=== PATIENT | male | born 1950 | race Caucasian/White ===

== ENCOUNTER 2018-06-06 08:06 | Inpatient (IN) | payer MEDICARE, MEDICAID ==
[2018-06-06 08:51] LABS: ADD MAN DIFF? NO
[2018-06-06 08:54] LABS: WHITE BLOOD COUNT 7.9 10^3/ul (4.8-10.8)
[2018-06-06 08:54] LABS: BASOPHILS % 0.3 % (0.0-2.0); EOSINOPHILS # 0.1 10^3/ul (0.0-0.5); EOSINOPHILS % 0.9 % (0.0-7.0); HEMATOCRIT 40.4 % (42.0-52.0); HEMOGLOBIN 13.7 g/dl (14.0-18.0); LYMPHOCYTES # 1.7 10^3/ul (0.8-2.9); LYMPHOCYTES % 20.9 % (15.0-51.0); MEAN CORPUSCULAR HEMOGLOBIN 31.9 pg (29.0-33.0); MEAN CORPUSCULAR HGB CONC 33.9 g/dl (32.0-37.0); MEAN CORPUSCULAR VOLUME 94.2 fl (82.0-101.0); MEAN PLATELET VOLUME 10.4 fl (7.4-10.4); MONOCYTE # 0.3 10^3/ul (0.3-0.9); MONOCYTES % 4.3 % (0.0-11.0); NEUTROPHIL # 5.8 10^3/ul (1.6-7.5); NEUTROPHILS % 73.2 % (39.0-77.0); PLATELET COUNT 153 10^3/UL (140-415); POSITIVE DIFF @See below; RED BLOOD COUNT 4.29 10^6/ul (4.70-6.10); RED CELL DISTRIBUTION WIDTH 12.8 % (11.5-14.5)
[2018-06-06] MEDS: LORAZEPAM 2 MG INJ IV ×3 (08:58→22:48)
[2018-06-06] MEDS: ACETAMINOPHEN 325 MG TAB PO ×2 (08:58→21:08)
[2018-06-06] MEDS: SODIUM CHLORIDE 0.9% 1L BAG IV* (08:59)
[2018-06-06] MEDS: MULTIVITAMINS 10 ML, THIAMINE 100 MG, FOLIC ACID 1 MG, MAGNESIUM SULFATE 2 GM in SOD CH... IV (09:02)
[2018-06-06 09:08] LABS: LACTIC ACID 1.2 mmol/L (0.5-2.0)
[2018-06-06 09:11] LABS: ALANINE AMINOTRANSFERASE 26 IU/L (13-69); ALBUMIN/GLOBULIN RATIO 1.02; ALKALINE PHOSPHATASE 114 IU/L (42-121); ANION GAP 12 (8-16); ASPARTATE AMINO TRANSFERASE 31 IU/L (15-46); BILIRUBIN,INDIRECT 0.4 mg/dl (0-1.1); BILIRUBIN,TOTAL 0.4 mg/dl (0.2-1.3); BLOOD UREA NITROGEN 28 mg/dl (7-20); CALCIUM 8.8 mg/dl (8.4-10.2); CARBON DIOXIDE 26 mmol/L (21-31); CHLORIDE 104 mmol/L (97-110); CREATININE 2.16 mg/dl (0.61-1.24); GLUCOSE 211 mg/dl (70-220); POTASSIUM 4.5 mmol/L (3.5-5.1); SODIUM 137 mmol/L (135-144); TOTAL PROTEIN 7.9 g/dl (6.1-8.1)
[2018-06-06 09:14] LABS: INR 0.85; PARTIAL THROMBOPLASTIN TIME 29.5 Sec (25.0-35.0); PROTIME 11.7 Sec (11.9-14.9); PT RATIO 0.9
[2018-06-06 09:22] LABS: TROPONIN-I 0.034 ng/ml (0.000-0.120)
[2018-06-06 09:31] LABS: ETHANOL < 10.0 mg/dl
[2018-06-06] MEDS: ASPIRIN 81 MG TAB PO (10:15)
[2018-06-06] MEDS ORDERED: ONDANSETRON 4 MG INJ IV (10:30)
[2018-06-06] MEDS ORDERED: ACETAMINOPHEN 325 MG TAB PO (10:30)
[2018-06-06 11:06] LABS: LACTIC ACID 0.9 mmol/L (0.5-2.0)
[2018-06-06 11:24] LABS: ADD UMIC YES; UR ASCORBIC ACID NEGATIVE (NEGATIVE); UR BILIRUBIN (Dip) NEGATIVE (NEGATIVE); UR BLOOD (Dip) 1+ mg/dL (NEGATIVE); UR CLARITY CLEAR (CLEAR); UR COLOR STRAW (YELLOW); UR GLUCOSE (Dip) 2+ mg/dL (NEGATIVE); UR KETONES (Dip) NEGATIVE (NEGATIVE); UR LEUKOCYTE ESTERASE (Dip) NEGATIVE Leu/ul (NEGATIVE); UR NITRITE (Dip) NEGATIVE (NEGATIVE); UR RBC 6 /HPF (0-5); UR SPECIFIC GRAVITY (Dip) 1.009 (1.003-1.030); UR TOTAL PROTEIN (Dip) 3+ mg/dl (NEGATIVE); UR UROBILINOGEN (Dip) NEGATIVE (NEGATIVE); UR WBC 1 /HPF (0-5)
[2018-06-06] MEDS ORDERED: NACL 0.9% 3 ML SYG IV (15:00)
[2018-06-06 15:21] LABS: HEMOGLOBIN A1C 8.4 % (0-5.9)
[2018-06-06] MEDS: hydrALAzine 20 MG INJ IV (15:32)
[2018-06-06 15:35] LABS: FREE T4 (FREE THYROXINE) 0.93 ng/dl (0.78-2.44)
[2018-06-06 15:38] LABS: CHOLESTEROL 195 mg/dl (100-200)
[2018-06-06 15:38] LABS: CHOL/HDL RATIO 3.8 RATIO; HDL CHOLESTEROL 51 mg/dl (30-78); LDL CHOLESTEROL,CALCULATED 81 mg/dl; TRIGLYCERIDES 316 mg/dl (0-149)
[2018-06-06 15:48] LABS: C-REACTIVE PROTEIN < 0.5 mg/dl (0.0-0.9)
[2018-06-06 17:28] LABS: ERYTHROCYTE SEDIMENTATION RATE 84 mm/Hr (0-20)
[2018-06-06] MEDS: INSULIN ASPART [NOVOLOG] 3 ML PEN SC ×3 (17:32→20:17)
[2018-06-06 19:51] LABS: AMPHETAMINE/METHAMPHETAMINE Negative (NEGATIVE); BARBITURATES Negative (NEGATIVE); BENZODIAZEPINES Negative (NEGATIVE); CANNABINOIDS Negative (NEGATIVE); COCAINE Negative (NEGATIVE); OPIATES Negative (NEGATIVE)
[2018-06-06] MEDS ORDERED: DEXTROSE 50% 50 ML SYRINGE IV ×2 (20:00)
[2018-06-06] MEDS ORDERED: GLUCOSE GEL 15 GRAM TUBE BUCCAL (20:00)
[2018-06-06] MEDS ORDERED: GLUCOSE GEL 15 GRAM TUBE PO ×2 (20:00)
[2018-06-06] MEDS ORDERED: GLUCAGON 1 MG INJ IM (20:00)
[2018-06-06] MEDS: CHLORDIAZEPOXIDE 25 MG CAP PO (20:08)
[2018-06-06] MEDS: METOPROLOL 25 MG TAB PO (20:08)
[2018-06-06] MEDS: ATORVASTATIN 40 MG TAB PO (20:08)
[2018-06-06] MEDS: INSULIN GLARGINE [LANTus] (100 UNITS/ML) SYG SC (20:17)
[2018-06-06] MEDS: HEPARIN 5,000 UNIT/0.5 ML VIAL SC (22:00)
[2018-06-07] MEDS: LORAZEPAM 2 MG INJ IV ×6 (01:49→14:40)
[2018-06-07] MEDS: hydrALAzine 20 MG INJ IV ×2 (05:01→16:04)
[2018-06-07] MEDS: HEPARIN 5,000 UNIT/0.5 ML VIAL SC ×3 (05:47→22:38)
[2018-06-07] MEDS ORDERED: PROPOFOL 200 MG INJ (07:00)
[2018-06-07] MEDS ORDERED: SUCCINYLCHOLINE CHLORIDE 100 MG/5 ML SYG IV (07:00)
[2018-06-07] MEDS ORDERED: ETOMIDATE 20 MG INJ (07:00)
[2018-06-07 07:17] LABS: WHITE BLOOD COUNT 12.7 10^3/ul (4.8-10.8)
[2018-06-07 07:17] LABS: HEMATOCRIT 42.8 % (42.0-52.0); HEMOGLOBIN 14.7 g/dl (14.0-18.0); MEAN CORPUSCULAR HEMOGLOBIN 31.8 pg (29.0-33.0); MEAN CORPUSCULAR HGB CONC 34.3 g/dl (32.0-37.0); MEAN CORPUSCULAR VOLUME 92.6 fl (82.0-101.0); PLATELET COUNT 169 10^3/UL (140-415); POSITIVE DIFF @See below; RED BLOOD COUNT 4.62 10^6/ul (4.70-6.10); RED CELL DISTRIBUTION WIDTH 12.7 % (11.5-14.5)
[2018-06-07 07:31] LABS: ADD MAN DIFF? YES
[2018-06-07 07:56] LABS: CREATINE KINASE 136 IU/L (23-200); MAGNESIUM 1.9 mg/dl (1.7-2.5)
[2018-06-07 08:02] LABS: ALANINE AMINOTRANSFERASE 19 IU/L (13-69); ALBUMIN 3.8 g/dl (3.3-4.9); ALBUMIN/GLOBULIN RATIO 0.92; ALKALINE PHOSPHATASE 111 IU/L (42-121); ANION GAP 14 (8-16); ASPARTATE AMINO TRANSFERASE 32 IU/L (15-46); BILIRUBIN,INDIRECT 0.5 mg/dl (0-1.1); BILIRUBIN,TOTAL 0.5 mg/dl (0.2-1.3); BLOOD UREA NITROGEN 23 mg/dl (7-20); CALCIUM 8.7 mg/dl (8.4-10.2); CARBON DIOXIDE 21 mmol/L (21-31); CHLORIDE 104 mmol/L (97-110); CREATININE 1.91 mg/dl (0.61-1.24); GLUCOSE 166 mg/dl (70-220); POTASSIUM 4.1 mmol/L (3.5-5.1); SODIUM 135 mmol/L (135-144); TOTAL PROTEIN 7.9 g/dl (6.1-8.1)
[2018-06-07] MEDS: INSULIN ASPART [NOVOLOG] 3 ML PEN SC ×6 (08:03→22:44)
[2018-06-07 08:08] LABS: CK INDEX 0.3; CK-MB 0.36 ng/ml (0.0-2.4); TROPONIN-I 0.068 ng/ml (0.000-0.120)
[2018-06-07] MEDS: MULTIVITAMINS 10 ML, THIAMINE 100 MG, FOLIC ACID 1 MG in SOD CHLORIDE 0.9% 1,000 ML IVPB (08:58)
[2018-06-07] MEDS: ASPIRIN 81 MG TAB PO (09:00)
[2018-06-07] MEDS: METOPROLOL 25 MG TAB PO ×2 (09:00→22:22)
[2018-06-07] MEDS: CHLORDIAZEPOXIDE 25 MG CAP PO ×3 (09:00→22:22)
[2018-06-07 09:55] LABS: BAND NEUTROPHILS #M 0.5 10^3/ul (0.0-0.6); BAND NEUTROPHILS % (M) 4 % (0-4); EOSINOPHILS % (M) 1 % (0-7); LYMPHOCYTES #M 1.2 10^3/ul (0.8-2.9); LYMPHOCYTES % (M) 10 % (15-51); METAMYELOCYTES #M 0.1 10^3/ul (0.0-0.0); METAMYELOCYTES %M 1 % (0-0); MONOCYTE #M 0.7 10^3/ul (0.3-0.9); MONOCYTES % (M) 6 % (0-11); PLATELET ESTIMATE NORMAL; REACTIVE LYMPHOCYTES #M 0.2 10^3/ul (0.0-0.0); REACTIVE LYMPHOCYTES% (M) 2 % (0-0); SEG NEUT #M 9.7 10^3/ul (1.6-7.5); SEGMENTED NEUTROPHILS (M) % 76 % (39-77); SMUDGE%M 12 % (0-0)
[2018-06-07] MEDS: CEFTRIAXONE 1 GM/50 ML (PMX) 50 ML IVPB (10:00)
[2018-06-07 12:45] LABS: HIV 1&2 ANTIBODY NEGATIVE (NEGATIVE)
[2018-06-07] MEDS ORDERED: [UNRECOGNIZED DRUG - REMARK] XX (13:00)
[2018-06-07] MEDS ORDERED: AMPICILLIN 1 GM/NS (PMX) 50 ML IVPB (14:00)
[2018-06-07] MEDS: AMPICILLIN 2 GM/NS (PMX) 100 ML IVPB ×2 (14:37→21:38)
[2018-06-07] MEDS: VANCOMYCIN 2 GM in SOD CHLORIDE 0.9% 500 ML IVPB (15:38)
[2018-06-07] MEDS: ACETAMINOPHEN 650 MG SUPP PR (16:27)
[2018-06-07] MEDS: METOPROLOL 5 MG INJ IV (16:38)
[2018-06-07] MEDS: HALOPERIDOL 5 MG INJ IV (16:39)
[2018-06-07 17:30] LABS: AADO2 Arterial 73.4 mmHg (7.0-24.0); Allen Test ACCEPTAB; Arterial Base Excess -1.8 mmol/L (-3.0-3); Arterial Blood Gas Oxygen Sat 76.2 mmHG (95.0-98.0); Arterial COHb 0.9 % (0.0-3.0); Arterial Fraction of Oxyhgb 75.5 % (93.0-99.0); Arterial HCO3 21.3 mmol/L (22.0-26.0); Arterial MetHb 0 % (0.0-1.5); Arterial Total Hemglobin 14.8 g/dl (12.0-18.0); MODE ROOM AIR; Site Left Radial
[2018-06-07 17:57] LABS: ANION GAP 13 (8-16); BLOOD UREA NITROGEN 26 mg/dl (7-20); CALCIUM 8.3 mg/dl (8.4-10.2); CARBON DIOXIDE 20 mmol/L (21-31); CHLORIDE 107 mmol/L (97-110); CREATININE 2.33 mg/dl (0.61-1.24); GLUCOSE 178 mg/dl (70-220); SODIUM 136 mmol/L (135-144)
[2018-06-07] MEDS: PROPOFOL 200 MG INJ IV (18:00)
[2018-06-07 18:01] LABS: INR 0.93; PROTIME 12.5 Sec (11.9-14.9)
[2018-06-07 18:02] LABS: PARTIAL THROMBOPLASTIN TIME 27.9 Sec (25.0-35.0)
[2018-06-07 18:11] LABS: LACTIC ACID 1.8 mmol/L (0.5-2.0)
[2018-06-07] MEDS: SOD CHLORIDE 0.9% IV ×2 (18:15→19:06)
[2018-06-07] MEDS: ETOMIDATE 20 MG INJ IV (18:36)
[2018-06-07] MEDS: SUCCINYLCHOLINE CHLORIDE 100 MG/5 ML SYG IV (18:38)
[2018-06-07] MEDS: PROPOFOL 100 ML IV ×2 (18:51→23:02)
[2018-06-07] MEDS ORDERED: NORepinephrine 8MG/250 ML (PMX 250 ML IV (19:30)
[2018-06-07] MEDS: IPRATROPIUM (NEB) 0.5 MG/2.5 ML AMP HHN (19:39)
[2018-06-07] MEDS: SOD CHLORIDE 0.9% 1,000 ML IV (20:17)
[2018-06-07 20:30] LABS: Allen Test ACCEPTAB; Arterial Base Excess -4.6 mmol/L (-3.0-3); Arterial Blood Gas Oxygen Sat 98.8 mmHG (95.0-98.0); Arterial COHb 0.3 % (0.0-3.0); Arterial Fraction of Oxyhgb 98.4 % (93.0-99.0); Arterial HCO3 18.4 mmol/L (22.0-26.0); Arterial MetHb 0.1 % (0.0-1.5); Arterial Total Hemglobin 13.7 g/dl (12.0-18.0); Arterial pCO2 28.5 mmhg (35-45); MODE VENT - AC; Site Right Radial
[2018-06-07 20:53] LABS: LACTIC ACID 1.5 mmol/L (0.5-2.0)
[2018-06-07 21:56] LABS: RAPID PLASMA REAGIN NONREACTIVE (NR)
[2018-06-07] MEDS: ACETAMINOPHEN 325 MG TAB PO (22:22)
[2018-06-07] MEDS: ATORVASTATIN 40 MG TAB PO (22:22)
[2018-06-07] MEDS: CEFTRIAXONE 2 GM/50 ML (PMX) 50 ML IVPB (22:46)
[2018-06-08] MEDS: AMPICILLIN 2 GM/NS (PMX) 100 ML IVPB ×5 (00:44→23:57)
[2018-06-08] MEDS: INSULIN ASPART [NOVOLOG] 3 ML PEN SC ×7 (00:54→21:00)
[2018-06-08] MEDS: IPRATROPIUM (NEB) 0.5 MG/2.5 ML AMP HHN ×4 (01:10→19:58)
[2018-06-08] MEDS: METOPROLOL 5 MG INJ IV ×2 (01:28→17:05)
[2018-06-08] MEDS: SOD CHLORIDE 0.9% 1,000 ML IV ×2 (01:30→03:34)
[2018-06-08] MEDS: INSULIN GLARGINE [LANTus] (100 UNITS/ML) SYG SC (01:39)
[2018-06-08] MEDS: PROPOFOL 100 ML IV ×4 (03:34→21:25)
[2018-06-08 05:12] LABS: ADD MAN DIFF? NO
[2018-06-08] MEDS: HEPARIN 5,000 UNIT/0.5 ML VIAL SC ×3 (05:17→21:50)
[2018-06-08 05:22] LABS: WHITE BLOOD COUNT 12.5 10^3/ul (4.8-10.8)
[2018-06-08 05:22] LABS: BASOPHILS % 0.2 % (0.0-2.0); EOSINOPHILS % 0.2 % (0.0-7.0); HEMATOCRIT 37.9 % (42.0-52.0); HEMOGLOBIN 12.7 g/dl (14.0-18.0); LYMPHOCYTES # 2.4 10^3/ul (0.8-2.9); LYMPHOCYTES % 18.9 % (15.0-51.0); MEAN CORPUSCULAR HGB CONC 33.5 g/dl (32.0-37.0); MEAN CORPUSCULAR VOLUME 95.5 fl (82.0-101.0); MEAN PLATELET VOLUME 11.4 fl (7.4-10.4); MONOCYTE # 1.2 10^3/ul (0.3-0.9); MONOCYTES % 9.5 % (0.0-11.0); NEUTROPHIL # 8.8 10^3/ul (1.6-7.5); NEUTROPHILS % 70.8 % (39.0-77.0); PLATELET COUNT 140 10^3/UL (140-415); POSITIVE DIFF @See below; RED BLOOD COUNT 3.97 10^6/ul (4.70-6.10); RED CELL DISTRIBUTION WIDTH 13.2 % (11.5-14.5)
[2018-06-08] MEDS: ACETAMINOPHEN 325 MG TAB PO ×2 (05:24→21:33)
[2018-06-08 06:03] LABS: LACTIC ACID 1.3 mmol/L (0.5-2.0); PHOSPHORUS 4.5 mg/dl (2.5-4.9)
[2018-06-08 06:10] LABS: CK-MB 0.86 ng/ml (0.0-2.4)
[2018-06-08 06:13] LABS: MAGNESIUM 1.8 mg/dl (1.7-2.5)
[2018-06-08 06:13] LABS: CREATINE KINASE 221 IU/L (23-200)
[2018-06-08 06:15] LABS: CK INDEX 0.4; TROPONIN-I 0.163 ng/ml (0.000-0.120)
[2018-06-08 06:38] LABS: ALANINE AMINOTRANSFERASE 29 IU/L (13-69); ALBUMIN 2.7 g/dl (3.3-4.9); ALBUMIN/GLOBULIN RATIO 0.87; ALKALINE PHOSPHATASE 69 IU/L (42-121); ANION GAP 13 (8-16); ASPARTATE AMINO TRANSFERASE 30 IU/L (15-46); BILIRUBIN,INDIRECT 0.3 mg/dl (0-1.1); BILIRUBIN,TOTAL 0.3 mg/dl (0.2-1.3); BLOOD UREA NITROGEN 30 mg/dl (7-20); CALCIUM 7.6 mg/dl (8.4-10.2); CARBON DIOXIDE 19 mmol/L (21-31); CHLORIDE 111 mmol/L (97-110); CREATININE 2.67 mg/dl (0.61-1.24); GLUCOSE 109 mg/dl (70-220); POTASSIUM 3.9 mmol/L (3.5-5.1); SODIUM 139 mmol/L (135-144); TOTAL PROTEIN 5.8 g/dl (6.1-8.1)
[2018-06-08] MEDS: MULTIVITAMINS 10 ML, THIAMINE 100 MG, FOLIC ACID 1 MG in SOD CHLORIDE 0.9% 1,000 ML IVPB (08:43)
[2018-06-08] MEDS: ASPIRIN 81 MG TAB PO (08:51)
[2018-06-08] MEDS: CHLORDIAZEPOXIDE 25 MG CAP PO ×3 (08:51→21:16)
[2018-06-08] MEDS: METOPROLOL 25 MG TAB PO ×2 (08:56→21:15)
[2018-06-08] MEDS: CEFTRIAXONE 2 GM/50 ML (PMX) 50 ML IVPB ×2 (09:34→21:17)
[2018-06-08] MEDS: PANTOPRAZOLE 40 MG INJ IV (09:53)
[2018-06-08] MEDS ORDERED: VANCOMYCIN IV PER PHARMACY XX (15:00)
[2018-06-08] MEDS: VANCOMYCIN 1.25 GM in SOD CHLORIDE 0.9% 250 ML IVPB (15:47)
[2018-06-08] MEDS: hydrALAzine 20 MG INJ IV (15:54)
[2018-06-08] MEDS: LORAZEPAM 2 MG INJ IV (17:02)
[2018-06-08 18:13] LABS: AMMONIA < 9 umol/l (9-30)
[2018-06-08] MEDS: SOD CHLORIDE 0.45% 1,000 ML IV (18:47)
[2018-06-08] MEDS: ATORVASTATIN 40 MG TAB PO (21:15)
[2018-06-09] MEDS: INSULIN ASPART [NOVOLOG] 3 ML PEN SC ×6 (00:50→21:00)
[2018-06-09] MEDS: IPRATROPIUM (NEB) 0.5 MG/2.5 ML AMP HHN ×4 (01:25→19:48)
[2018-06-09] MEDS: PROPOFOL 100 ML IV ×2 (02:17→18:15)
[2018-06-09] MEDS: SOD CHLORIDE 0.45% 1,000 ML IV (04:52)
[2018-06-09 05:04] LABS: ADD MAN DIFF? NO; BASOPHILS % 0.3 % (0.0-2.0); EOSINOPHILS # 0.2 10^3/ul (0.0-0.5); EOSINOPHILS % 1.5 % (0.0-7.0); HEMATOCRIT 33.4 % (42.0-52.0); LYMPHOCYTES % 16.6 % (15.0-51.0); MEAN CORPUSCULAR HEMOGLOBIN 31.8 pg (29.0-33.0); MEAN CORPUSCULAR HGB CONC 32.9 g/dl (32.0-37.0); MEAN CORPUSCULAR VOLUME 96.5 fl (82.0-101.0); MEAN PLATELET VOLUME 11.3 fl (7.4-10.4); MONOCYTES % 8.8 % (0.0-11.0); NEUTROPHIL # 8.6 10^3/ul (1.6-7.5); NEUTROPHILS % 72.4 % (39.0-77.0); PLATELET COUNT 132 10^3/UL (140-415); POSITIVE DIFF @See below; RED BLOOD COUNT 3.46 10^6/ul (4.70-6.10); RED CELL DISTRIBUTION WIDTH 13.4 % (11.5-14.5)
[2018-06-09 05:04] LABS: WHITE BLOOD COUNT 11.8 10^3/ul (4.8-10.8)
[2018-06-09] MEDS: PANTOPRAZOLE 40 MG INJ IV (05:38)
[2018-06-09] MEDS: AMPICILLIN 2 GM/NS (PMX) 100 ML IVPB ×3 (05:38→23:44)
[2018-06-09] MEDS: HEPARIN 5,000 UNIT/0.5 ML VIAL SC ×3 (05:43→23:45)
[2018-06-09 05:57] LABS: CREATINE KINASE 106 IU/L (23-200)
[2018-06-09 05:57] LABS: URIC ACID 6.1 mg/dl (3.1-7.9)
[2018-06-09 06:05] LABS: ANION GAP 11 (8-16); BLOOD UREA NITROGEN 36 mg/dl (7-20); CALCIUM 7.4 mg/dl (8.4-10.2); CARBON DIOXIDE 19 mmol/L (21-31); CHLORIDE 113 mmol/L (97-110); CREATININE 3.14 mg/dl (0.61-1.24); GLUCOSE 81 mg/dl (70-220); MAGNESIUM 1.8 mg/dl (1.7-2.5); PHOSPHORUS 4.9 mg/dl (2.5-4.9); POTASSIUM 3.6 mmol/L (3.5-5.1); SODIUM 139 mmol/L (135-144)
[2018-06-09 07:43] LABS: SODIUM,URINE RANDOM 24 mmol/L (30-90)
[2018-06-09 07:45] LABS: CREATININE,URINE RANDOM 222.07 mg/dl (20-370)
[2018-06-09 07:57] LABS: PROTEIN/CREAT RATIO 2.31 RATIO
[2018-06-09] MEDS: ASPIRIN 81 MG TAB PO (09:42)
[2018-06-09] MEDS: METOPROLOL 25 MG TAB PO ×2 (09:42→20:38)
[2018-06-09] MEDS: CEFTRIAXONE 2 GM/50 ML (PMX) 50 ML IVPB ×2 (09:47→20:47)
[2018-06-09] MEDS: MULTIVITAMINS 10 ML, THIAMINE 100 MG, FOLIC ACID 1 MG in SOD CHLORIDE 0.9% 1,000 ML IVPB (09:48)
[2018-06-09] MEDS: CHLORDIAZEPOXIDE 25 MG CAP PO ×3 (09:55→20:37)
[2018-06-09] MEDS: D5W-0.45 NACL + KCL 10 MEQ 1,000 ML IV (11:49)
[2018-06-09] MEDS: hydrALAzine 20 MG INJ IV (14:49)
[2018-06-09] MEDS: ATORVASTATIN 40 MG TAB PO (20:37)
[2018-06-09] MEDS: ACETAMINOPHEN 325 MG TAB PO (20:47)
[2018-06-09] MEDS: LORAZEPAM 2 MG INJ IV (21:43)
[2018-06-10] MEDS: PROPOFOL 100 ML IV ×3 (00:54→14:00)
[2018-06-10] MEDS: INSULIN ASPART [NOVOLOG] 3 ML PEN SC ×6 (00:57→21:00)
[2018-06-10] MEDS: D5W-0.45 NACL + KCL 10 MEQ 1,000 ML IV ×3 (00:59→21:18)
[2018-06-10] MEDS: IPRATROPIUM (NEB) 0.5 MG/2.5 ML AMP HHN ×4 (01:02→20:02)
[2018-06-10 05:28] LABS: ADD MAN DIFF? NO
[2018-06-10 05:36] LABS: WHITE BLOOD COUNT 10.2 10^3/ul (4.8-10.8)
[2018-06-10 05:36] LABS: BASOPHILS % 0.2 % (0.0-2.0); EOSINOPHILS # 0.4 10^3/ul (0.0-0.5); EOSINOPHILS % 3.4 % (0.0-7.0); LYMPHOCYTES % 9.7 % (15.0-51.0); MEAN CORPUSCULAR HEMOGLOBIN 31.8 pg (29.0-33.0); MEAN CORPUSCULAR HGB CONC 33.3 g/dl (32.0-37.0); MEAN CORPUSCULAR VOLUME 95.5 fl (82.0-101.0); MEAN PLATELET VOLUME 11.8 fl (7.4-10.4); MONOCYTE # 0.8 10^3/ul (0.3-0.9); MONOCYTES % 8.3 % (0.0-11.0); NEUTROPHIL # 7.9 10^3/ul (1.6-7.5); PLATELET COUNT 131 10^3/UL (140-415); POSITIVE DIFF @See below; RED BLOOD COUNT 3.14 10^6/ul (4.70-6.10); RED CELL DISTRIBUTION WIDTH 13.4 % (11.5-14.5)
[2018-06-10] MEDS: AMPICILLIN 2 GM/NS (PMX) 100 ML IVPB ×3 (05:53→22:49)
[2018-06-10] MEDS: PANTOPRAZOLE 40 MG INJ IV (06:03)
[2018-06-10] MEDS: HEPARIN 5,000 UNIT/0.5 ML VIAL SC ×3 (06:04→22:51)
[2018-06-10 06:10] LABS: VANCOMYCIN,RANDOM 8.7 ug/ml
[2018-06-10 06:18] LABS: ANION GAP 9 (8-16); BLOOD UREA NITROGEN 36 mg/dl (7-20); CALCIUM 7.7 mg/dl (8.4-10.2); CARBON DIOXIDE 19 mmol/L (21-31); CHLORIDE 113 mmol/L (97-110); CREATININE 3.25 mg/dl (0.61-1.24); GLUCOSE 138 mg/dl (70-220); POTASSIUM 3.5 mmol/L (3.5-5.1); SODIUM 137 mmol/L (135-144)
[2018-06-10] MEDS: CHLORDIAZEPOXIDE 25 MG CAP PO ×3 (08:51→20:45)
[2018-06-10] MEDS: ASPIRIN 81 MG TAB PO (08:51)
[2018-06-10] MEDS: MULTIVITAMINS 10 ML, THIAMINE 100 MG, FOLIC ACID 1 MG in SOD CHLORIDE 0.9% 1,000 ML IVPB (08:51)
[2018-06-10] MEDS: METOPROLOL 25 MG TAB PO ×2 (08:52→20:45)
[2018-06-10] MEDS: CEFTRIAXONE 2 GM/50 ML (PMX) 50 ML IVPB ×2 (09:00→20:46)
[2018-06-10] MEDS: VANCOMYCIN 1.5 GM in SOD CHLORIDE 0.9% 250 ML IVPB (11:28)
[2018-06-10] MEDS ORDERED: LIDOCAINE 1% (MDV) 10 ML INJ (12:41)
[2018-06-10] MEDS: FUROSEMIDE 40 MG INJ IV (13:35)
[2018-06-10] MEDS: SOD CHLORIDE 0.9% 500 ML IV (13:36)
[2018-06-10] MEDS: ALBUMIN HUMAN 25% 100 ML IV (13:38)
[2018-06-10 13:49] LABS: CSF RBC 0 /uL (0-0); CSF WBC 0 /cmm (0-10)
[2018-06-10 14:00] LABS: CSF CLARITY CLEAR; CSF#TUBE COUNT TUBE#1; CSF#TUBES REC'D 1
[2018-06-10 14:00] LABS: CSF COLOR COLORLESS
[2018-06-10 14:42] LABS: GLUCOSE,CSF 84 mg/dl (50-80)
[2018-06-10 14:42] LABS: TOTAL PROTEIN,CSF 202 mg/dl (12-60)
[2018-06-10] MEDS: hydrALAzine 20 MG INJ IV (18:59)
[2018-06-10] MEDS: ATORVASTATIN 40 MG TAB PO (20:44)
[2018-06-10] MEDS: LINEZOLID 600 MG/D5W (PMX) 300 ML IVPB (20:45)
[2018-06-11] MEDS: IPRATROPIUM (NEB) 0.5 MG/2.5 ML AMP HHN ×4 (01:18→19:29)
[2018-06-11] MEDS: INSULIN ASPART [NOVOLOG] 3 ML PEN SC ×6 (01:22→20:42)
[2018-06-11 05:29] LABS: ADD MAN DIFF? NO
[2018-06-11 05:31] LABS: BASOPHILS % 0.2 % (0.0-2.0); EOSINOPHILS # 0.3 10^3/ul (0.0-0.5); EOSINOPHILS % 2.8 % (0.0-7.0); HEMATOCRIT 31.2 % (42.0-52.0); HEMOGLOBIN 10.5 g/dl (14.0-18.0); LYMPHOCYTES # 0.9 10^3/ul (0.8-2.9); LYMPHOCYTES % 8.6 % (15.0-51.0); MEAN CORPUSCULAR HEMOGLOBIN 31.9 pg (29.0-33.0); MEAN CORPUSCULAR HGB CONC 33.7 g/dl (32.0-37.0); MEAN CORPUSCULAR VOLUME 94.8 fl (82.0-101.0); MEAN PLATELET VOLUME 12.2 fl (7.4-10.4); MONOCYTE # 0.7 10^3/ul (0.3-0.9); MONOCYTES % 7.2 % (0.0-11.0); NEUTROPHIL # 8.2 10^3/ul (1.6-7.5); NEUTROPHILS % 80.6 % (39.0-77.0); PLATELET COUNT 172 10^3/UL (140-415); RED BLOOD COUNT 3.29 10^6/ul (4.70-6.10); RED CELL DISTRIBUTION WIDTH 13.2 % (11.5-14.5)
[2018-06-11 05:31] LABS: WHITE BLOOD COUNT 10.2 10^3/ul (4.8-10.8)
[2018-06-11] MEDS: PROPOFOL 100 ML IV (05:52)
[2018-06-11] MEDS: PANTOPRAZOLE 40 MG INJ IV (05:52)
[2018-06-11] MEDS: AMPICILLIN 2 GM/NS (PMX) 100 ML IVPB ×3 (05:52→21:43)
[2018-06-11 05:55] LABS: ANION GAP 11 (8-16); BLOOD UREA NITROGEN 32 mg/dl (7-20); CALCIUM 7.9 mg/dl (8.4-10.2); CARBON DIOXIDE 19 mmol/L (21-31); CHLORIDE 113 mmol/L (97-110); CREATININE 2.74 mg/dl (0.61-1.24); GLUCOSE 206 mg/dl (70-220); POTASSIUM 3.8 mmol/L (3.5-5.1); SODIUM 139 mmol/L (135-144)
[2018-06-11] MEDS: HEPARIN 5,000 UNIT/0.5 ML VIAL SC ×3 (05:57→21:17)
[2018-06-11] MEDS: MULTIVITAMINS 10 ML, THIAMINE 100 MG, FOLIC ACID 1 MG in SOD CHLORIDE 0.9% 1,000 ML IVPB (09:14)
[2018-06-11] MEDS: ASPIRIN 81 MG TAB PO (09:17)
[2018-06-11] MEDS: METOPROLOL 25 MG TAB PO ×2 (09:18→21:18)
[2018-06-11] MEDS: CEFTRIAXONE 2 GM/50 ML (PMX) 50 ML IVPB ×2 (09:19→21:09)
[2018-06-11] MEDS: ALBUMIN HUMAN 25% 100 ML IV (09:56)
[2018-06-11] MEDS: CHLORDIAZEPOXIDE 25 MG CAP PO ×3 (09:57→21:18)
[2018-06-11] MEDS: LINEZOLID 600 MG/D5W (PMX) 300 ML IVPB ×2 (11:06→21:18)
[2018-06-11] MEDS: FUROSEMIDE 40 MG INJ IV (12:14)
[2018-06-11] MEDS: hydrALAzine 20 MG INJ IV (16:45)
[2018-06-11] MEDS: D5W-0.45 NACL + KCL 10 MEQ 1,000 ML IV (18:57)
[2018-06-11] MEDS: INSULIN GLARGINE [LANTus] (100 UNITS/ML) SYG SC (20:44)
[2018-06-11] MEDS: ATORVASTATIN 40 MG TAB PO (21:18)
[2018-06-12] MEDS: INSULIN ASPART [NOVOLOG] 3 ML PEN SC ×6 (01:00→21:09)
[2018-06-12] MEDS: IPRATROPIUM (NEB) 0.5 MG/2.5 ML AMP HHN ×4 (01:07→19:29)
[2018-06-12 05:02] LABS: ADD MAN DIFF? NO
[2018-06-12 05:07] LABS: WHITE BLOOD COUNT 8.5 10^3/ul (4.8-10.8)
[2018-06-12 05:07] LABS: BASOPHILS % 0.1 % (0.0-2.0); EOSINOPHILS # 0.3 10^3/ul (0.0-0.5); HEMATOCRIT 28.4 % (42.0-52.0); HEMOGLOBIN 9.6 g/dl (14.0-18.0); LYMPHOCYTES # 0.9 10^3/ul (0.8-2.9); LYMPHOCYTES % 11.1 % (15.0-51.0); MEAN CORPUSCULAR HEMOGLOBIN 32.3 pg (29.0-33.0); MEAN CORPUSCULAR HGB CONC 33.8 g/dl (32.0-37.0); MEAN CORPUSCULAR VOLUME 95.6 fl (82.0-101.0); MEAN PLATELET VOLUME 11.4 fl (7.4-10.4); MONOCYTE # 0.7 10^3/ul (0.3-0.9); MONOCYTES % 8.1 % (0.0-11.0); NEUTROPHIL # 6.5 10^3/ul (1.6-7.5); NEUTROPHILS % 76.8 % (39.0-77.0); PLATELET COUNT 184 10^3/UL (140-415); RED BLOOD COUNT 2.97 10^6/ul (4.70-6.10); RED CELL DISTRIBUTION WIDTH 13.4 % (11.5-14.5)
[2018-06-12 05:27] LABS: ANION GAP 9 (8-16); BLOOD UREA NITROGEN 31 mg/dl (7-20); CARBON DIOXIDE 22 mmol/L (21-31); CHLORIDE 112 mmol/L (97-110); CREATININE 2.58 mg/dl (0.61-1.24); GLUCOSE 297 mg/dl (70-220); POTASSIUM 3.5 mmol/L (3.5-5.1); SODIUM 139 mmol/L (135-144)
[2018-06-12] MEDS: PROPOFOL 100 ML IV ×2 (05:35→17:04)
[2018-06-12] MEDS: PANTOPRAZOLE 40 MG INJ IV (05:35)
[2018-06-12] MEDS: AMPICILLIN 2 GM/NS (PMX) 100 ML IVPB (05:36)
[2018-06-12] MEDS: HEPARIN 5,000 UNIT/0.5 ML VIAL SC ×3 (05:39→21:09)
[2018-06-12] MEDS: ASPIRIN 81 MG TAB PO (08:33)
[2018-06-12] MEDS: CHLORDIAZEPOXIDE 25 MG CAP PO ×3 (08:33→21:32)
[2018-06-12] MEDS: METOPROLOL 25 MG TAB PO ×2 (08:33→20:54)
[2018-06-12] MEDS: LINEZOLID 600 MG/D5W (PMX) 300 ML IVPB ×2 (08:34→20:51)
[2018-06-12] MEDS: MULTIVITAMINS 10 ML, THIAMINE 100 MG, FOLIC ACID 1 MG in SOD CHLORIDE 0.9% 1,000 ML IVPB (09:54)
[2018-06-12] MEDS: CEFTRIAXONE 2 GM/50 ML (PMX) 50 ML IVPB ×2 (09:55→20:50)
[2018-06-12] MEDS: POTASSIUM CHLORIDE 100 ML IVPB ×2 (11:03→13:52)
[2018-06-12] MEDS: hydrALAzine 20 MG INJ IV ×2 (12:42→18:25)
[2018-06-12] MEDS: LINAGLIPTIN 5 MG TABLET PO (15:08)
[2018-06-12] MEDS: INSULIN GLARGINE [LANTus] (100 UNITS/ML) SYG SC (20:53)
[2018-06-12] MEDS: ATORVASTATIN 40 MG TAB PO (20:54)
[2018-06-13] MEDS ORDERED: INSULIN ASPART [NOVOLOG] 3 ML PEN SC (01:00)
[2018-06-13] MEDS: Insulin NOVOLOG SS MODERATE Algorithm(NPO/TPN/ENTERAL FEEDS) SC ×6 (01:07→20:29)
[2018-06-13] MEDS: IPRATROPIUM (NEB) 0.5 MG/2.5 ML AMP HHN ×4 (01:07→19:48)
[2018-06-13] MEDS: ACCU-CHEK XX (01:27)
[2018-06-13] MEDS ORDERED: ACCU-CHEK XX (02:00)
[2018-06-13] MEDS: PANTOPRAZOLE 40 MG INJ IV (05:15)
[2018-06-13] MEDS: HEPARIN 5,000 UNIT/0.5 ML VIAL SC ×3 (05:18→20:36)
[2018-06-13] MEDS: PROPOFOL 100 ML IV ×2 (05:19→17:06)
[2018-06-13 06:49] LABS: ADD MAN DIFF? NO
[2018-06-13 06:55] LABS: BASOPHILS % 0.3 % (0.0-2.0); EOSINOPHILS # 0.4 10^3/ul (0.0-0.5); EOSINOPHILS % 4.6 % (0.0-7.0); HEMATOCRIT 33.4 % (42.0-52.0); HEMOGLOBIN 10.9 g/dl (14.0-18.0); LYMPHOCYTES % 11.3 % (15.0-51.0); MEAN CORPUSCULAR HEMOGLOBIN 32.1 pg (29.0-33.0); MEAN CORPUSCULAR HGB CONC 32.6 g/dl (32.0-37.0); MEAN CORPUSCULAR VOLUME 98.2 fl (82.0-101.0); MEAN PLATELET VOLUME 11.4 fl (7.4-10.4); MONOCYTE # 0.7 10^3/ul (0.3-0.9); MONOCYTES % 8.2 % (0.0-11.0); NEUTROPHIL # 6.7 10^3/ul (1.6-7.5); NEUTROPHILS % 74.7 % (39.0-77.0); PLATELET COUNT 236 10^3/UL (140-415); RED CELL DISTRIBUTION WIDTH 13.4 % (11.5-14.5)
[2018-06-13 06:55] LABS: WHITE BLOOD COUNT 8.9 10^3/ul (4.8-10.8)
[2018-06-13 07:25] LABS: ANION GAP 10 (8-16); BLOOD UREA NITROGEN 31 mg/dl (7-20); CALCIUM 8.5 mg/dl (8.4-10.2); CARBON DIOXIDE 23 mmol/L (21-31); CHLORIDE 112 mmol/L (97-110); CREATININE 2.44 mg/dl (0.61-1.24); GLUCOSE 255 mg/dl (70-220); SODIUM 141 mmol/L (135-144)
[2018-06-13] MEDS: LINAGLIPTIN 5 MG TABLET PO (08:22)
[2018-06-13] MEDS: CEFTRIAXONE 2 GM/50 ML (PMX) 50 ML IVPB ×2 (08:22→20:29)
[2018-06-13] MEDS: LINEZOLID 600 MG/D5W (PMX) 300 ML IVPB ×2 (08:22→20:30)
[2018-06-13] MEDS: ASPIRIN 81 MG TAB PO (09:25)
[2018-06-13] MEDS: CHLORDIAZEPOXIDE 25 MG CAP PO ×3 (09:26→20:29)
[2018-06-13] MEDS: METOPROLOL 25 MG TAB PO ×2 (09:26→20:29)
[2018-06-13] MEDS: MULTIVITAMINS 10 ML, THIAMINE 100 MG, FOLIC ACID 1 MG in SOD CHLORIDE 0.9% 1,000 ML IVPB (11:06)
[2018-06-13] MEDS: INSULIN ASPART [NOVOLOG] 3 ML PEN SC ×2 (12:10→17:22)
[2018-06-13] MEDS: hydrALAzine 20 MG INJ IV (17:23)
[2018-06-13] MEDS: INSULIN GLARGINE [LANTus] (100 UNITS/ML) SYG SC (20:28)
[2018-06-13] MEDS: ATORVASTATIN 40 MG TAB PO (20:29)
[2018-06-14] MEDS: INSULIN ASPART [NOVOLOG] 3 ML PEN SC ×3 (00:29→17:20)
[2018-06-14] MEDS: Insulin NOVOLOG SS MODERATE Algorithm(NPO/TPN/ENTERAL FEEDS) SC ×6 (01:00→20:46)
[2018-06-14] MEDS: IPRATROPIUM (NEB) 0.5 MG/2.5 ML AMP HHN ×4 (01:28→19:47)
[2018-06-14] MEDS: ACCU-CHEK XX (01:48)
[2018-06-14] MEDS: PANTOPRAZOLE 40 MG INJ IV (05:10)
[2018-06-14] MEDS: HEPARIN 5,000 UNIT/0.5 ML VIAL SC ×3 (05:12→21:03)
[2018-06-14] MEDS: PROPOFOL 100 ML IV ×2 (05:18→18:00)
[2018-06-14 05:31] LABS: ADD MAN DIFF? NO
[2018-06-14 05:39] LABS: BASOPHILS % 0.3 % (0.0-2.0); EOSINOPHILS # 0.4 10^3/ul (0.0-0.5); EOSINOPHILS % 5.4 % (0.0-7.0); HEMOGLOBIN 10.2 g/dl (14.0-18.0); LYMPHOCYTES # 1.1 10^3/ul (0.8-2.9); MEAN CORPUSCULAR HEMOGLOBIN 32.2 pg (29.0-33.0); MEAN CORPUSCULAR HGB CONC 32.9 g/dl (32.0-37.0); MEAN CORPUSCULAR VOLUME 97.8 fl (82.0-101.0); MEAN PLATELET VOLUME 10.7 fl (7.4-10.4); MONOCYTE # 0.7 10^3/ul (0.3-0.9); NEUTROPHIL # 5.1 10^3/ul (1.6-7.5); NEUTROPHILS % 69.3 % (39.0-77.0); PLATELET COUNT 255 10^3/UL (140-415); RED BLOOD COUNT 3.17 10^6/ul (4.70-6.10); RED CELL DISTRIBUTION WIDTH 13.2 % (11.5-14.5)
[2018-06-14 05:39] LABS: WHITE BLOOD COUNT 7.3 10^3/ul (4.8-10.8)
[2018-06-14 06:03] LABS: ANION GAP 10 (8-16); BLOOD UREA NITROGEN 31 mg/dl (7-20); CALCIUM 8.7 mg/dl (8.4-10.2); CARBON DIOXIDE 24 mmol/L (21-31); CHLORIDE 112 mmol/L (97-110); CREATININE 2.28 mg/dl (0.61-1.24); GLUCOSE 177 mg/dl (70-220); POTASSIUM 3.9 mmol/L (3.5-5.1); SODIUM 142 mmol/L (135-144)
[2018-06-14] MEDS ORDERED: ASPIRIN 81 MG TAB PO (09:00)
[2018-06-14] MEDS: CEFTRIAXONE 2 GM/50 ML (PMX) 50 ML IVPB ×2 (09:38→20:47)
[2018-06-14] MEDS: LINEZOLID 600 MG/D5W (PMX) 300 ML IVPB ×2 (09:39→20:48)
[2018-06-14] MEDS: LINAGLIPTIN 5 MG TABLET PO (09:41)
[2018-06-14] MEDS: CHLORDIAZEPOXIDE 25 MG CAP PO ×3 (09:41→20:58)
[2018-06-14] MEDS: METOPROLOL 25 MG TAB PO ×2 (09:41→20:47)
[2018-06-14] MEDS: MULTIVITAMINS 10 ML, THIAMINE 100 MG, FOLIC ACID 1 MG in SOD CHLORIDE 0.9% 1,000 ML IVPB (09:42)
[2018-06-14] MEDS: ASPIRIN 325 MG TAB PO (09:51)
[2018-06-14 10:49] LABS: AADO2 Arterial 72.3 mmHg (7.0-24.0); Allen Test ACCEPTAB; Arterial Base Excess -0.4 mmol/L (-3.0-3); Arterial COHb 0.3 % (0.0-3.0); Arterial Fraction of Oxyhgb 96.4 % (93.0-99.0); Arterial HCO3 23.8 mmol/L (22.0-26.0); Arterial MetHb 0.3 % (0.0-1.5); Arterial pCO2 37.3 mmhg (35-45); MODE VENT - AC; Site Left Radial
[2018-06-14] MEDS: hydrALAzine 20 MG INJ IV (15:27)
[2018-06-14] MEDS: INSULIN GLARGINE [LANTus] (100 UNITS/ML) SYG SC ×2 (20:00→20:57)
[2018-06-14] MEDS: ATORVASTATIN 80 MG TAB PO ×2 (21:01)
[2018-06-15] MEDS: INSULIN ASPART [NOVOLOG] 3 ML PEN SC ×4 (00:39→17:13)
[2018-06-15] MEDS: Insulin NOVOLOG SS MODERATE Algorithm(NPO/TPN/ENTERAL FEEDS) SC ×6 (01:00→20:21)
[2018-06-15] MEDS: IPRATROPIUM (NEB) 0.5 MG/2.5 ML AMP HHN ×4 (01:12→19:24)
[2018-06-15] MEDS: ACCU-CHEK XX (02:00)
[2018-06-15] MEDS: PROPOFOL 100 ML IV (06:00)
[2018-06-15] MEDS: PANTOPRAZOLE 40 MG INJ IV (06:11)
[2018-06-15] MEDS: HEPARIN 5,000 UNIT/0.5 ML VIAL SC ×3 (06:13→21:17)
[2018-06-15 06:36] LABS: INR 0.98; PROTIME 13.1 Sec (11.9-14.9)
[2018-06-15] MEDS: hydrALAzine 20 MG INJ IV (07:14)
[2018-06-15] MEDS: ASPIRIN 325 MG TAB PO (09:06)
[2018-06-15] MEDS: LINAGLIPTIN 5 MG TABLET PO (09:06)
[2018-06-15] MEDS: LINEZOLID 600 MG/D5W (PMX) 300 ML IVPB ×2 (09:07→20:22)
[2018-06-15] MEDS: CEFTRIAXONE 2 GM/50 ML (PMX) 50 ML IVPB ×2 (09:07→20:21)
[2018-06-15] MEDS: METOPROLOL 25 MG TAB PO ×2 (09:07→17:24)
[2018-06-15] MEDS: CHLORDIAZEPOXIDE 25 MG CAP PO ×3 (09:15→20:21)
[2018-06-15] MEDS: HYDROCODONE/APAP (5/325) TAB PO (09:20)
[2018-06-15] MEDS: LORAZEPAM 2 MG INJ IV (11:00)
[2018-06-15 11:03] LABS: Allen Test ACCEPTAB; Arterial Base Excess 1.1 mmol/L (-3.0-3); Arterial Blood Gas Oxygen Sat 97.2 mmHG (95.0-98.0); Arterial COHb 0.3 % (0.0-3.0); Arterial Fraction of Oxyhgb 96.6 % (93.0-99.0); Arterial HCO3 25.7 mmol/L (22.0-26.0); Arterial MetHb 0.3 % (0.0-1.5); Arterial Total Hemglobin 10.7 g/dl (12.0-18.0); Arterial pCO2 40.5 mmhg (35-45); Blood Gas PS 10; MODE VENT - CPAP; Site Right Radial
[2018-06-15] MEDS: ACETAMINOPHEN 325 MG TAB PO (17:11)
[2018-06-15 18:09] LABS: AADO2 Arterial 62.2 mmHg (7.0-24.0); Allen Test ACCEPTAB; Arterial Base Excess -0.2 mmol/L (-3.0-3); Arterial COHb 0.3 % (0.0-3.0); Arterial Fraction of Oxyhgb 96.4 % (93.0-99.0); Arterial HCO3 24.4 mmol/L (22.0-26.0); Arterial MetHb 0.3 % (0.0-1.5); Arterial Total Hemglobin 10.9 g/dl (12.0-18.0); Arterial pCO2 39.7 mmhg (35-45); Blood Gas PS 10; MODE VENT - CPAP; Site Left Radial
[2018-06-15] MEDS: METOPROLOL 5 MG INJ IV ×3 (20:03→21:16)
[2018-06-15] MEDS: INSULIN GLARGINE [LANTus] (100 UNITS/ML) SYG SC (20:16)
[2018-06-15] MEDS: ATORVASTATIN 80 MG TAB PO (20:22)
[2018-06-16] MEDS: Insulin NOVOLOG SS MODERATE Algorithm(NPO/TPN/ENTERAL FEEDS) SC ×6 (01:00→21:45)
[2018-06-16] MEDS: ACCU-CHEK XX (02:00)
[2018-06-16 05:08] LABS: ADD MAN DIFF? NO
[2018-06-16 05:13] LABS: WHITE BLOOD COUNT 7.6 10^3/ul (4.8-10.8)
[2018-06-16 05:13] LABS: BASOPHILS % 0.5 % (0.0-2.0); EOSINOPHILS # 0.5 10^3/ul (0.0-0.5); EOSINOPHILS % 6.3 % (0.0-7.0); HEMATOCRIT 32.8 % (42.0-52.0); HEMOGLOBIN 10.6 g/dl (14.0-18.0); LYMPHOCYTES # 1.5 10^3/ul (0.8-2.9); LYMPHOCYTES % 19.5 % (15.0-51.0); MEAN CORPUSCULAR HEMOGLOBIN 31.5 pg (29.0-33.0); MEAN CORPUSCULAR HGB CONC 32.3 g/dl (32.0-37.0); MEAN CORPUSCULAR VOLUME 97.3 fl (82.0-101.0); MONOCYTE # 0.7 10^3/ul (0.3-0.9); MONOCYTES % 8.5 % (0.0-11.0); NEUTROPHIL # 4.9 10^3/ul (1.6-7.5); NEUTROPHILS % 64.5 % (39.0-77.0); PLATELET COUNT 307 10^3/UL (140-415); RED BLOOD COUNT 3.37 10^6/ul (4.70-6.10); RED CELL DISTRIBUTION WIDTH 12.9 % (11.5-14.5)
[2018-06-16 05:38] LABS: ANION GAP 10 (8-16); BLOOD UREA NITROGEN 31 mg/dl (7-20); CARBON DIOXIDE 26 mmol/L (21-31); CHLORIDE 112 mmol/L (97-110); CREATININE 2.11 mg/dl (0.61-1.24); GLUCOSE 203 mg/dl (70-220); MAGNESIUM 2.2 mg/dl (1.7-2.5); PHOSPHORUS 4.5 mg/dl (2.5-4.9); POTASSIUM 4.2 mmol/L (3.5-5.1); SODIUM 144 mmol/L (135-144)
[2018-06-16] MEDS: HEPARIN 5,000 UNIT/0.5 ML VIAL SC ×3 (05:44→22:27)
[2018-06-16] MEDS ORDERED: RACEPINEPHRINE 2.25%(NEB) 0.5 ML AMP ×2 (05:57→06:02)
[2018-06-16] MEDS: RACEPINEPHRINE 2.25%(NEB) 0.5 ML AMP HHN (06:00)
[2018-06-16] MEDS: PROPOFOL 100 ML IV ×3 (06:00→18:20)
[2018-06-16] MEDS: INSULIN ASPART [NOVOLOG] 3 ML PEN SC ×3 (06:06→12:54)
[2018-06-16 06:23] LABS: Allen Test ACCEPTAB; Arterial Base Excess 0.3 mmol/L (-3.0-3); Arterial Blood Gas Oxygen Sat 95.9 mmHG (95.0-98.0); Arterial COHb 0.2 % (0.0-3.0); Arterial Fraction of Oxyhgb 95.7 % (93.0-99.0); Arterial HCO3 27.7 mmol/L (22.0-26.0); Arterial MetHb 0 % (0.0-1.5); Arterial Total Hemglobin 12.5 g/dl (12.0-18.0); Arterial pCO2 57.7 mmhg (35-45); MODE MASK - SIMPLE; Site Left Radial
[2018-06-16] MEDS: METOPROLOL 5 MG INJ IV (08:08)
[2018-06-16 08:24] LABS: AADO2 Arterial 326.3 mmHg (7.0-24.0); Allen Test ACCEPTAB; Arterial Base Excess -1.4 mmol/L (-3.0-3); Arterial Blood Gas Oxygen Sat 98.8 mmHG (95.0-98.0); Arterial COHb 0.2 % (0.0-3.0); Arterial Fraction of Oxyhgb 98.3 % (93.0-99.0); Arterial HCO3 24.2 mmol/L (22.0-26.0); Arterial MetHb 0.3 % (0.0-1.5); Arterial Total Hemglobin 11.1 g/dl (12.0-18.0); Arterial pCO2 44.4 mmhg (35-45); MODE VENT - AC; Site Right Radial
[2018-06-16] MEDS: NIFEdipine 10 MG CAP PO ×3 (09:00→22:26)
[2018-06-16] MEDS: CEFTRIAXONE 2 GM/50 ML (PMX) 50 ML IVPB (09:43)
[2018-06-16] MEDS: LINAGLIPTIN 5 MG TABLET PO (09:44)
[2018-06-16] MEDS: ASPIRIN 81 MG TAB PO (09:44)
[2018-06-16] MEDS: METOPROLOL 25 MG TAB PO ×2 (09:44→20:40)
[2018-06-16] MEDS: CHLORDIAZEPOXIDE 25 MG CAP PO (09:44)
[2018-06-16] MEDS: LINEZOLID 600 MG/D5W (PMX) 300 ML IVPB (09:53)
[2018-06-16] MEDS: HYDROCODONE/APAP (5/325) TAB PO (14:13)
[2018-06-16] MEDS: ATORVASTATIN 80 MG TAB PO (20:39)
[2018-06-16] MEDS: INSULIN GLARGINE [LANTus] (100 UNITS/ML) SYG SC (20:39)
[2018-06-16] MEDS: FAMOTIDINE 20 MG TAB GTB (20:39)
[2018-06-17] MEDS: Insulin NOVOLOG SS MODERATE Algorithm(NPO/TPN/ENTERAL FEEDS) SC ×6 (00:46→21:22)
[2018-06-17] MEDS: ACCU-CHEK XX (01:14)
[2018-06-17] MEDS: PROPOFOL 100 ML IV ×2 (04:39→22:00)
[2018-06-17] MEDS: METOPROLOL 5 MG INJ IV ×2 (04:48→10:16)
[2018-06-17 05:01] LABS: ADD MAN DIFF? NO
[2018-06-17 05:12] LABS: BASOPHILS % 0.4 % (0.0-2.0); EOSINOPHILS # 0.5 10^3/ul (0.0-0.5); EOSINOPHILS % 5.9 % (0.0-7.0); HEMATOCRIT 29.3 % (42.0-52.0); HEMOGLOBIN 9.5 g/dl (14.0-18.0); LYMPHOCYTES # 1.5 10^3/ul (0.8-2.9); MEAN CORPUSCULAR HEMOGLOBIN 31.4 pg (29.0-33.0); MEAN CORPUSCULAR HGB CONC 32.4 g/dl (32.0-37.0); MEAN CORPUSCULAR VOLUME 96.7 fl (82.0-101.0); MEAN PLATELET VOLUME 9.7 fl (7.4-10.4); MONOCYTE # 0.7 10^3/ul (0.3-0.9); MONOCYTES % 8.3 % (0.0-11.0); NEUTROPHIL # 5.3 10^3/ul (1.6-7.5); NEUTROPHILS % 65.5 % (39.0-77.0); PLATELET COUNT 265 10^3/UL (140-415); RED BLOOD COUNT 3.03 10^6/ul (4.70-6.10); RED CELL DISTRIBUTION WIDTH 12.8 % (11.5-14.5)
[2018-06-17] MEDS: NIFEdipine 10 MG CAP PO ×3 (05:28→22:06)
[2018-06-17] MEDS: HEPARIN 5,000 UNIT/0.5 ML VIAL SC ×3 (05:29→21:25)
[2018-06-17 05:48] LABS: ANION GAP 9 (8-16); BLOOD UREA NITROGEN 33 mg/dl (7-20); CALCIUM 8.9 mg/dl (8.4-10.2); CARBON DIOXIDE 28 mmol/L (21-31); CHLORIDE 112 mmol/L (97-110); CREATININE 1.91 mg/dl (0.61-1.24); GLUCOSE 166 mg/dl (70-220); SODIUM 145 mmol/L (135-144)
[2018-06-17] MEDS ORDERED: ETOMIDATE 20 MG INJ (07:00)
[2018-06-17] MEDS ORDERED: SUCCINYLCHOLINE CHLORIDE 100 MG/5 ML SYG IV (07:00)
[2018-06-17] MEDS: METOPROLOL 25 MG TAB PO ×2 (09:15→21:21)
[2018-06-17] MEDS: LINAGLIPTIN 5 MG TABLET PO (09:15)
[2018-06-17] MEDS: FAMOTIDINE 20 MG TAB GTB ×2 (09:15→21:21)
[2018-06-17] MEDS: ASPIRIN 81 MG TAB PO (09:15)
[2018-06-17] MEDS: hydrALAzine 20 MG INJ IV (12:00)
[2018-06-17 12:21] LABS: AADO2 Arterial 54.1 mmHg (7.0-24.0); Arterial Base Excess 3.8 mmol/L (-3.0-3); Arterial Blood Gas Oxygen Sat 97.6 mmHG (95.0-98.0); Arterial COHb 0.3 % (0.0-3.0); Arterial Fraction of Oxyhgb 97.1 % (93.0-99.0); Arterial HCO3 28.3 mmol/L (22.0-26.0); Arterial MetHb 0.2 % (0.0-1.5); Arterial Total Hemglobin 10.8 g/dl (12.0-18.0); Arterial pCO2 42.2 mmhg (35-45); Blood Gas PS 10; MODE VENT - CPAP; Site Right Brachial
[2018-06-17] MEDS: ALBUTEROL/IPRATROPIUM (NEB) 3 ML AMP HHN (14:00)
[2018-06-17] MEDS: RACEPINEPHRINE 2.25%(NEB) 0.5 ML AMP HHN ×2 (15:10→20:15)
[2018-06-17 19:28] LABS: AADO2 Arterial 159.1 mmHg (7.0-24.0); Allen Test ACCEPTAB; Arterial Base Excess 2.3 mmol/L (-3.0-3); Arterial Blood Gas Oxygen Sat 93.7 mmHG (95.0-98.0); Arterial COHb 0.3 % (0.0-3.0); Arterial Fraction of Oxyhgb 93.4 % (93.0-99.0); Arterial HCO3 27.8 mmol/L (22.0-26.0); Arterial MetHb 0 % (0.0-1.5); Arterial Total Hemglobin 10.9 g/dl (12.0-18.0); Arterial pCO2 47.7 mmhg (35-45); MODE MASK - SIMPLE; Site Right Radial
[2018-06-17] MEDS: INSULIN GLARGINE [LANTus] (100 UNITS/ML) SYG SC (19:53)
[2018-06-17] MEDS: FUROSEMIDE 40 MG INJ IV (21:09)
[2018-06-17] MEDS: ATORVASTATIN 80 MG TAB PO (21:21)
[2018-06-17 22:13] LABS: ADD MAN DIFF? NO
[2018-06-17 22:14] LABS: BASOPHILS % 0.4 % (0.0-2.0); EOSINOPHILS # 0.2 10^3/ul (0.0-0.5); EOSINOPHILS % 1.8 % (0.0-7.0); HEMOGLOBIN 10.6 g/dl (14.0-18.0); LYMPHOCYTES # 0.9 10^3/ul (0.8-2.9); LYMPHOCYTES % 10.1 % (15.0-51.0); MEAN CORPUSCULAR HEMOGLOBIN 32.6 pg (29.0-33.0); MEAN CORPUSCULAR HGB CONC 33.1 g/dl (32.0-37.0); MEAN CORPUSCULAR VOLUME 98.5 fl (82.0-101.0); MEAN PLATELET VOLUME 9.3 fl (7.4-10.4); MONOCYTE # 0.5 10^3/ul (0.3-0.9); MONOCYTES % 5.3 % (0.0-11.0); NEUTROPHIL # 6.9 10^3/ul (1.6-7.5); NEUTROPHILS % 81.3 % (39.0-77.0); PLATELET COUNT 282 10^3/UL (140-415); RED BLOOD COUNT 3.25 10^6/ul (4.70-6.10); RED CELL DISTRIBUTION WIDTH 12.7 % (11.5-14.5)
[2018-06-17 22:14] LABS: WHITE BLOOD COUNT 8.5 10^3/ul (4.8-10.8)
[2018-06-17 22:33] LABS: LACTIC ACID 1.6 mmol/L (0.5-2.0)
[2018-06-17 22:34] LABS: ANION GAP 12 (8-16); BLOOD UREA NITROGEN 32 mg/dl (7-20); CALCIUM 8.8 mg/dl (8.4-10.2); CARBON DIOXIDE 26 mmol/L (21-31); CHLORIDE 110 mmol/L (97-110); CREATININE 1.89 mg/dl (0.61-1.24); GLUCOSE 173 mg/dl (70-220); POTASSIUM 4.4 mmol/L (3.5-5.1); SODIUM 144 mmol/L (135-144)
[2018-06-17 22:47] LABS: AADO2 Arterial 245.6 mmHg (7.0-24.0); Allen Test ACCEPTAB; Arterial Base Excess 0.6 mmol/L (-3.0-3); Arterial Blood Gas Oxygen Sat 93.7 mmHG (95.0-98.0); Arterial COHb 0.3 % (0.0-3.0); Arterial Fraction of Oxyhgb 93.4 % (93.0-99.0); Arterial HCO3 24.8 mmol/L (22.0-26.0); Arterial MetHb 0 % (0.0-1.5); Arterial Total Hemglobin 10.4 g/dl (12.0-18.0); Arterial pCO2 38.1 mmhg (35-45); MODE VENT - AC; Site Right Radial
[2018-06-18] MEDS: Insulin NOVOLOG SS MODERATE Algorithm(NPO/TPN/ENTERAL FEEDS) SC ×6 (01:00→21:08)
[2018-06-18] MEDS: ACCU-CHEK XX (02:00)
[2018-06-18 02:25] LABS: LACTIC ACID 0.8 mmol/L (0.5-2.0)
[2018-06-18] MEDS: NIFEdipine 10 MG CAP PO ×3 (05:55→21:01)
[2018-06-18] MEDS: HEPARIN 5,000 UNIT/0.5 ML VIAL SC ×3 (05:56→22:06)
[2018-06-18 06:17] LABS: AADO2 Arterial 125.9 mmHg (7.0-24.0); Allen Test ACCEPTAB; Arterial Base Excess 5.5 mmol/L (-3.0-3); Arterial Blood Gas Oxygen Sat 98.3 mmHG (95.0-98.0); Arterial COHb 0.3 % (0.0-3.0); Arterial Fraction of Oxyhgb 97.9 % (93.0-99.0); Arterial HCO3 30.4 mmol/L (22.0-26.0); Arterial MetHb 0.1 % (0.0-1.5); Arterial Total Hemglobin 10.3 g/dl (12.0-18.0); Arterial pCO2 45.9 mmhg (35-45); MODE VENT - AC; Site Right Radial
[2018-06-18] MEDS: METOPROLOL 25 MG TAB PO ×2 (09:11→21:01)
[2018-06-18] MEDS: FAMOTIDINE 20 MG TAB GTB ×2 (09:11→20:57)
[2018-06-18] MEDS: ASPIRIN 81 MG TAB PO (09:11)
[2018-06-18] MEDS: LINAGLIPTIN 5 MG TABLET PO (09:11)
[2018-06-18] MEDS: PROPOFOL 100 ML IV ×2 (09:38→21:02)
[2018-06-18] MEDS: METHYLPREDNISOLONE 40 MG INJ IV ×3 (12:35→22:05)
[2018-06-18] MEDS: ACYCLOVIR 500 MG in SOD CHLORIDE 0.9% 100 ML IVPB (14:41)
[2018-06-18] MEDS: ATORVASTATIN 80 MG TAB PO (21:01)
[2018-06-18] MEDS: HYDROCODONE/APAP (5/325) TAB PO (21:02)
[2018-06-18] MEDS: INSULIN GLARGINE [LANTus] (100 UNITS/ML) SYG SC (21:06)
[2018-06-18 22:24] LABS: LACTIC ACID 0.7 mmol/L (0.5-2.0)
[2018-06-18] MEDS ORDERED: DEXTROSE 5%-0.45% NACL 1,000 ML IV (23:30)
[2018-06-19] MEDS: SOD CHLORIDE 0.45% 1,000 ML IV (00:47)
[2018-06-19] MEDS: ACCU-CHEK XX (00:47)
[2018-06-19] MEDS: Insulin NOVOLOG SS MODERATE Algorithm(NPO/TPN/ENTERAL FEEDS) SC ×6 (01:00→20:42)
[2018-06-19 05:37] LABS: ADD MAN DIFF? NO
[2018-06-19 05:40] LABS: BASOPHILS % 0.1 % (0.0-2.0); HEMOGLOBIN 9.4 g/dl (14.0-18.0); LYMPHOCYTES # 0.9 10^3/ul (0.8-2.9); LYMPHOCYTES % 11.9 % (15.0-51.0); MEAN CORPUSCULAR HGB CONC 32.4 g/dl (32.0-37.0); MEAN CORPUSCULAR VOLUME 98.6 fl (82.0-101.0); MONOCYTE # 0.1 10^3/ul (0.3-0.9); MONOCYTES % 1.1 % (0.0-11.0); NEUTROPHIL # 6.5 10^3/ul (1.6-7.5); NEUTROPHILS % 86.1 % (39.0-77.0); PLATELET COUNT 265 10^3/UL (140-415); RED BLOOD COUNT 2.94 10^6/ul (4.70-6.10); RED CELL DISTRIBUTION WIDTH 12.5 % (11.5-14.5)
[2018-06-19 05:40] LABS: WHITE BLOOD COUNT 7.5 10^3/ul (4.8-10.8)
[2018-06-19] MEDS: METHYLPREDNISOLONE 40 MG INJ IV ×3 (05:47→21:07)
[2018-06-19] MEDS: NIFEdipine 10 MG CAP PO ×3 (05:48→21:08)
[2018-06-19] MEDS: HEPARIN 5,000 UNIT/0.5 ML VIAL SC ×3 (05:49→21:09)
[2018-06-19 06:08] LABS: ANION GAP 15 (8-16); BLOOD UREA NITROGEN 51 mg/dl (7-20); CALCIUM 8.7 mg/dl (8.4-10.2); CARBON DIOXIDE 26 mmol/L (21-31); CHLORIDE 108 mmol/L (97-110); CREATININE 2.53 mg/dl (0.61-1.24); GLUCOSE 240 mg/dl (70-220); MAGNESIUM 2.5 mg/dl (1.7-2.5); POTASSIUM 4.2 mmol/L (3.5-5.1); SODIUM 145 mmol/L (135-144)
[2018-06-19] MEDS: FAMOTIDINE 20 MG TAB GTB ×2 (08:45→20:40)
[2018-06-19] MEDS: ASPIRIN 81 MG TAB PO (08:45)
[2018-06-19] MEDS: LINAGLIPTIN 5 MG TABLET PO (08:45)
[2018-06-19] MEDS: METOPROLOL 25 MG TAB PO ×3 (08:46→21:08)
[2018-06-19] MEDS: PROPOFOL 100 ML IV ×2 (08:46→22:00)
[2018-06-19] MEDS: LORAZEPAM 2 MG INJ IV (10:32)
[2018-06-19] MEDS: HYDROCODONE/APAP (5/325) TAB PO (17:40)
[2018-06-19] MEDS: ATORVASTATIN 80 MG TAB PO (20:40)
[2018-06-19] MEDS: INSULIN GLARGINE [LANTus] (100 UNITS/ML) SYG SC (20:41)
[2018-06-20] MEDS: HYDROCODONE/APAP (5/325) TAB PO ×2 (00:53→11:04)
[2018-06-20] MEDS: Insulin NOVOLOG SS MODERATE Algorithm(NPO/TPN/ENTERAL FEEDS) SC ×6 (00:54→20:19)
[2018-06-20] MEDS: ACCU-CHEK XX (02:18)
[2018-06-20] MEDS: LORAZEPAM 2 MG INJ IV ×3 (02:18→22:38)
[2018-06-20] MEDS: METHYLPREDNISOLONE 40 MG INJ IV ×3 (05:03→22:38)
[2018-06-20] MEDS: METOPROLOL 25 MG TAB PO ×3 (05:03→22:38)
[2018-06-20] MEDS: NIFEdipine 10 MG CAP PO ×3 (05:03→22:39)
[2018-06-20] MEDS: HEPARIN 5,000 UNIT/0.5 ML VIAL SC ×3 (05:06→22:48)
[2018-06-20 05:27] LABS: ADD MAN DIFF? NO
[2018-06-20 05:31] LABS: WHITE BLOOD COUNT 10.8 10^3/ul (4.8-10.8)
[2018-06-20 05:31] LABS: BASOPHILS % 0.1 % (0.0-2.0); HEMATOCRIT 27.5 % (42.0-52.0); HEMOGLOBIN 9.2 g/dl (14.0-18.0); IMMATURE GRANS #M 0.08 10^3/ul; IMMATURE GRANS % (M) 0.7 %; LYMPHOCYTES # 0.7 10^3/ul (0.8-2.9); LYMPHOCYTES % 6.5 % (15.0-51.0); MEAN CORPUSCULAR HEMOGLOBIN 32.7 pg (29.0-33.0); MEAN CORPUSCULAR HGB CONC 33.5 g/dl (32.0-37.0); MEAN CORPUSCULAR VOLUME 97.9 fl (82.0-101.0); MEAN PLATELET VOLUME 10.1 fl (7.4-10.4); MONOCYTE # 0.3 10^3/ul (0.3-0.9); MONOCYTES % 3.2 % (0.0-11.0); NEUTROPHIL # 9.7 10^3/ul (1.6-7.5); NEUTROPHILS % 89.5 % (39.0-77.0); PLATELET COUNT 258 10^3/UL (140-415); RED BLOOD COUNT 2.81 10^6/ul (4.70-6.10); RED CELL DISTRIBUTION WIDTH 12.5 % (11.5-14.5)
[2018-06-20 06:06] LABS: ANION GAP 9 (8-16); BLOOD UREA NITROGEN 64 mg/dl (7-20); CALCIUM 8.3 mg/dl (8.4-10.2); CARBON DIOXIDE 30 mmol/L (21-31); CHLORIDE 108 mmol/L (97-110); CREATININE 2.14 mg/dl (0.61-1.24); GLUCOSE 290 mg/dl (70-220); POTASSIUM 4.4 mmol/L (3.5-5.1); SODIUM 143 mmol/L (135-144)
[2018-06-20] MEDS: FAMOTIDINE 20 MG TAB GTB ×2 (08:17→20:26)
[2018-06-20] MEDS: LINAGLIPTIN 5 MG TABLET PO (08:17)
[2018-06-20] MEDS: ASPIRIN 81 MG TAB PO (08:17)
[2018-06-20] MEDS: PROPOFOL 100 ML IV ×2 (09:32→22:00)
[2018-06-20] MEDS: ATORVASTATIN 80 MG TAB PO (20:18)
[2018-06-20] MEDS: INSULIN GLARGINE [LANTus] (100 UNITS/ML) SYG SC (20:19)
[2018-06-21] MEDS: Insulin NOVOLOG SS MODERATE Algorithm(NPO/TPN/ENTERAL FEEDS) SC ×6 (00:59→20:41)
[2018-06-21] MEDS: ACCU-CHEK XX (01:00)
[2018-06-21 05:09] LABS: ADD MAN DIFF? NO
[2018-06-21 05:12] LABS: AADO2 Arterial 144.5 mmHg (7.0-24.0); Allen Test ACCEPTAB; Arterial Base Excess 3.8 mmol/L (-3.0-3); Arterial Blood Gas Oxygen Sat 96.4 mmHG (95.0-98.0); Arterial COHb 0.2 % (0.0-3.0); Arterial Fraction of Oxyhgb 95.9 % (93.0-99.0); Arterial HCO3 28.1 mmol/L (22.0-26.0); Arterial MetHb 0.3 % (0.0-1.5); Arterial Total Hemglobin 9.9 g/dl (12.0-18.0); Arterial pCO2 41.5 mmhg (35-45); MODE VENT - AC; Site Right Radial
[2018-06-21 05:18] LABS: BASOPHILS % 0.1 % (0.0-2.0); HEMATOCRIT 28.1 % (42.0-52.0); HEMOGLOBIN 9.2 g/dl (14.0-18.0); IMMATURE GRANS #M 0.08 10^3/ul; IMMATURE GRANS % (M) 0.7 %; LYMPHOCYTES # 0.8 10^3/ul (0.8-2.9); LYMPHOCYTES % 7.6 % (15.0-51.0); MEAN CORPUSCULAR HEMOGLOBIN 31.6 pg (29.0-33.0); MEAN CORPUSCULAR HGB CONC 32.7 g/dl (32.0-37.0); MEAN CORPUSCULAR VOLUME 96.6 fl (82.0-101.0); MEAN PLATELET VOLUME 10.4 fl (7.4-10.4); MONOCYTE # 0.4 10^3/ul (0.3-0.9); MONOCYTES % 3.7 % (0.0-11.0); NEUTROPHIL # 9.7 10^3/ul (1.6-7.5); NEUTROPHILS % 87.9 % (39.0-77.0); PLATELET COUNT 243 10^3/UL (140-415); RED BLOOD COUNT 2.91 10^6/ul (4.70-6.10); RED CELL DISTRIBUTION WIDTH 12.4 % (11.5-14.5)
[2018-06-21] MEDS: NIFEdipine 10 MG CAP PO ×3 (05:24→21:51)
[2018-06-21] MEDS: METHYLPREDNISOLONE 40 MG INJ IV (05:24)
[2018-06-21] MEDS: METOPROLOL 25 MG TAB PO ×3 (05:25→21:52)
[2018-06-21] MEDS: HEPARIN 5,000 UNIT/0.5 ML VIAL SC ×3 (05:28→22:15)
[2018-06-21 05:32] LABS: ANION GAP 10 (8-16); BLOOD UREA NITROGEN 63 mg/dl (7-20); CALCIUM 8.6 mg/dl (8.4-10.2); CARBON DIOXIDE 31 mmol/L (21-31); CHLORIDE 109 mmol/L (97-110); CREATININE 1.86 mg/dl (0.61-1.24); GLUCOSE 281 mg/dl (70-220); MAGNESIUM 2.9 mg/dl (1.7-2.5); POTASSIUM 4.9 mmol/L (3.5-5.1); SODIUM 145 mmol/L (135-144)
[2018-06-21] MEDS: ASPIRIN 81 MG TAB PO (08:03)
[2018-06-21] MEDS: LINAGLIPTIN 5 MG TABLET PO (08:03)
[2018-06-21] MEDS: hydrALAzine 20 MG INJ IV (09:25)
[2018-06-21] MEDS: PROPOFOL 100 ML IV ×2 (10:00→21:52)
[2018-06-21] MEDS: LORAZEPAM 2 MG INJ IV ×3 (10:20→19:13)
[2018-06-21 14:04] LABS: HSV 1 IGG ANTIBODY >58.00 index; HSV 2 IGG ANTIBODY <0.90 index
[2018-06-21 14:06] LABS: VDRL, CSF NON-REACTIVE; WEST NILE VIRUS ANTIBODY (IGG) <1.30 index; WEST NILE VIRUS ANTIBODY (IGM) 3.44 index
[2018-06-21] MEDS: HYDROCODONE/APAP (5/325) TAB PO ×2 (16:54→21:52)
[2018-06-21] MEDS: FAMOTIDINE 20 MG TAB GTB (20:40)
[2018-06-21] MEDS: ATORVASTATIN 80 MG TAB PO (20:40)
[2018-06-21] MEDS: INSULIN GLARGINE [LANTus] (100 UNITS/ML) SYG SC (20:42)
[2018-06-22] MEDS: Insulin NOVOLOG SS MODERATE Algorithm(NPO/TPN/ENTERAL FEEDS) SC ×6 (01:15→21:00)
[2018-06-22] MEDS: ACCU-CHEK XX (01:15)
[2018-06-22] MEDS: LORAZEPAM 2 MG INJ IV (03:03)
[2018-06-22] MEDS: HYDROCODONE/APAP (5/325) TAB PO ×2 (03:14→19:24)
[2018-06-22] MEDS: PROPOFOL 100 ML IV ×2 (03:32→18:39)
[2018-06-22] MEDS: METOPROLOL 25 MG TAB PO ×3 (05:27→21:54)
[2018-06-22] MEDS: HEPARIN 5,000 UNIT/0.5 ML VIAL SC ×3 (05:28→21:55)
[2018-06-22] MEDS: NIFEdipine 10 MG CAP PO ×3 (05:31→21:54)
[2018-06-22 05:51] LABS: ADD MAN DIFF? NO
[2018-06-22 05:55] LABS: BASOPHILS % 0.1 % (0.0-2.0); EOSINOPHILS # 0.1 10^3/ul (0.0-0.5); HEMOGLOBIN 8.9 g/dl (14.0-18.0); IMMATURE GRANS #M 0.05 10^3/ul; IMMATURE GRANS % (M) 0.5 %; LYMPHOCYTES # 1.6 10^3/ul (0.8-2.9); LYMPHOCYTES % 17.8 % (15.0-51.0); MEAN CORPUSCULAR HEMOGLOBIN 32.5 pg (29.0-33.0); MEAN CORPUSCULAR VOLUME 98.5 fl (82.0-101.0); MEAN PLATELET VOLUME 10.6 fl (7.4-10.4); MONOCYTE # 0.8 10^3/ul (0.3-0.9); MONOCYTES % 8.6 % (0.0-11.0); NEUTROPHIL # 6.6 10^3/ul (1.6-7.5); PLATELET COUNT 218 10^3/UL (140-415); RED BLOOD COUNT 2.74 10^6/ul (4.70-6.10); RED CELL DISTRIBUTION WIDTH 12.5 % (11.5-14.5)
[2018-06-22 05:55] LABS: WHITE BLOOD COUNT 9.2 10^3/ul (4.8-10.8)
[2018-06-22 06:15] LABS: INR 1.02; PROTIME 13.5 Sec (11.9-14.9); PT RATIO 1.1
[2018-06-22 06:16] LABS: PARTIAL THROMBOPLASTIN TIME 38.5 Sec (25.0-35.0)
[2018-06-22 06:20] LABS: ANION GAP 11 (8-16); BLOOD UREA NITROGEN 60 mg/dl (7-20); CALCIUM 8.5 mg/dl (8.4-10.2); CARBON DIOXIDE 30 mmol/L (21-31); CHLORIDE 110 mmol/L (97-110); CREATININE 1.77 mg/dl (0.61-1.24); GLUCOSE 135 mg/dl (70-220); POTASSIUM 4.4 mmol/L (3.5-5.1); SODIUM 147 mmol/L (135-144)
[2018-06-22] MEDS: ASPIRIN 81 MG TAB PO (07:24)
[2018-06-22] MEDS: LINAGLIPTIN 5 MG TABLET PO (07:25)
[2018-06-22] MEDS: POTASSIUM CHLORIDE 10 MEQ in DEXTROSE 5% 1,000 ML IV (11:41)
[2018-06-22] MEDS: LIDOCAINE 1%/EPI 30 ML INJ (13:22)
[2018-06-22] MEDS: hydrALAzine 20 MG INJ IV (16:19)
[2018-06-22] MEDS: FAMOTIDINE 20 MG TAB GTB (21:54)
[2018-06-22] MEDS: ATORVASTATIN 80 MG TAB PO (21:56)
[2018-06-22] MEDS: INSULIN GLARGINE [LANTus] (100 UNITS/ML) SYG SC (21:56)
[2018-06-23] MEDS: PROPOFOL 100 ML IV ×3 (01:32→13:18)
[2018-06-23] MEDS: Insulin NOVOLOG SS MODERATE Algorithm(NPO/TPN/ENTERAL FEEDS) SC ×6 (02:07→21:00)
[2018-06-23] MEDS: ACCU-CHEK XX (02:08)
[2018-06-23] MEDS: NIFEdipine 10 MG CAP PO ×3 (05:12→20:49)
[2018-06-23] MEDS: METOPROLOL 25 MG TAB PO ×3 (05:13→20:50)
[2018-06-23] MEDS: HEPARIN 5,000 UNIT/0.5 ML VIAL SC ×3 (05:14→22:09)
[2018-06-23 05:15] LABS: ADD MAN DIFF? NO
[2018-06-23 05:25] LABS: BASOPHILS % 0.2 % (0.0-2.0); EOSINOPHILS # 0.2 10^3/ul (0.0-0.5); EOSINOPHILS % 1.9 % (0.0-7.0); HEMATOCRIT 29.3 % (42.0-52.0); HEMOGLOBIN 9.5 g/dl (14.0-18.0); IMMATURE GRANS #M 0.04 10^3/ul; IMMATURE GRANS % (M) 0.4 %; LYMPHOCYTES # 1.2 10^3/ul (0.8-2.9); LYMPHOCYTES % 11.9 % (15.0-51.0); MEAN CORPUSCULAR HEMOGLOBIN 31.9 pg (29.0-33.0); MEAN CORPUSCULAR HGB CONC 32.4 g/dl (32.0-37.0); MEAN CORPUSCULAR VOLUME 98.3 fl (82.0-101.0); MEAN PLATELET VOLUME 10.9 fl (7.4-10.4); MONOCYTE # 0.7 10^3/ul (0.3-0.9); MONOCYTES % 6.7 % (0.0-11.0); NEUTROPHIL # 7.9 10^3/ul (1.6-7.5); NEUTROPHILS % 78.9 % (39.0-77.0); PLATELET COUNT 206 10^3/UL (140-415); RED BLOOD COUNT 2.98 10^6/ul (4.70-6.10); RED CELL DISTRIBUTION WIDTH 12.5 % (11.5-14.5)
[2018-06-23 05:41] LABS: MAGNESIUM 2.5 mg/dl (1.7-2.5)
[2018-06-23 05:41] LABS: PHOSPHORUS 4.9 mg/dl (2.5-4.9)
[2018-06-23 05:43] LABS: ANION GAP 11 (8-16); BLOOD UREA NITROGEN 49 mg/dl (7-20); CALCIUM 8.4 mg/dl (8.4-10.2); CARBON DIOXIDE 30 mmol/L (21-31); CHLORIDE 109 mmol/L (97-110); CREATININE 1.67 mg/dl (0.61-1.24); GLUCOSE 164 mg/dl (70-220); POTASSIUM 4.5 mmol/L (3.5-5.1); SODIUM 145 mmol/L (135-144)
[2018-06-23] MEDS: LINAGLIPTIN 5 MG TABLET PO (10:11)
[2018-06-23] MEDS: ASPIRIN 81 MG TAB PO (10:11)
[2018-06-23] MEDS: HYDROCODONE/APAP (5/325) TAB PO ×2 (10:13→22:10)
[2018-06-23] MEDS: CEFAZOLIN 1 GM/50 ML (PMX) 50 ML IVPB (16:24)
[2018-06-23] MEDS: PROPOFOL 20 ML (16:25)
[2018-06-23] MEDS: PHENYLephrine (100 MCG/ML) 5ML SYG (16:26)
[2018-06-23] MEDS: EPHEDrine 50 MG INJ (16:26)
[2018-06-23] MEDS: POTASSIUM CHLORIDE 10 MEQ in DEXTROSE 5% 1,000 ML IV (17:04)
[2018-06-23] MEDS: FAMOTIDINE 20 MG TAB GTB (20:49)
[2018-06-23] MEDS: ATORVASTATIN 80 MG TAB PO (20:49)
[2018-06-23] MEDS: INSULIN GLARGINE [LANTus] (100 UNITS/ML) SYG SC (20:51)
[2018-06-24] MEDS: Insulin NOVOLOG SS MODERATE Algorithm(NPO/TPN/ENTERAL FEEDS) SC ×6 (01:36→23:38)
[2018-06-24] MEDS: PROPOFOL 100 ML IV (04:26)
[2018-06-24 05:04] LABS: ADD MAN DIFF? NO
[2018-06-24 05:12] LABS: WHITE BLOOD COUNT 12.3 10^3/ul (4.8-10.8)
[2018-06-24 05:12] LABS: BASOPHILS % 0.2 % (0.0-2.0); EOSINOPHILS # 0.3 10^3/ul (0.0-0.5); EOSINOPHILS % 2.1 % (0.0-7.0); IMMATURE GRANS #M 0.05 10^3/ul; IMMATURE GRANS % (M) 0.4 %; LYMPHOCYTES # 1.5 10^3/ul (0.8-2.9); LYMPHOCYTES % 12.3 % (15.0-51.0); MEAN CORPUSCULAR HEMOGLOBIN 31.6 pg (29.0-33.0); MEAN CORPUSCULAR HGB CONC 32.3 g/dl (32.0-37.0); MEAN CORPUSCULAR VOLUME 98.1 fl (82.0-101.0); MEAN PLATELET VOLUME 11.4 fl (7.4-10.4); MONOCYTE # 0.7 10^3/ul (0.3-0.9); MONOCYTES % 5.8 % (0.0-11.0); NEUTROPHIL # 9.8 10^3/ul (1.6-7.5); NEUTROPHILS % 79.2 % (39.0-77.0); PLATELET COUNT 195 10^3/UL (140-415); RED BLOOD COUNT 3.16 10^6/ul (4.70-6.10); RED CELL DISTRIBUTION WIDTH 12.6 % (11.5-14.5)
[2018-06-24 05:37] LABS: ANION GAP 10 (8-16); BLOOD UREA NITROGEN 48 mg/dl (7-20); CALCIUM 8.4 mg/dl (8.4-10.2); CARBON DIOXIDE 30 mmol/L (21-31); CHLORIDE 107 mmol/L (97-110); CREATININE 1.93 mg/dl (0.61-1.24); GLUCOSE 168 mg/dl (70-220); MAGNESIUM 2.5 mg/dl (1.7-2.5); POTASSIUM 4.5 mmol/L (3.5-5.1); SODIUM 142 mmol/L (135-144)
[2018-06-24] MEDS: NIFEdipine 10 MG CAP PO ×3 (05:46→21:30)
[2018-06-24] MEDS: METOPROLOL 25 MG TAB PO ×3 (05:46→21:30)
[2018-06-24] MEDS: HEPARIN 5,000 UNIT/0.5 ML VIAL SC ×3 (05:47→23:40)
[2018-06-24] MEDS: POTASSIUM CHLORIDE 10 MEQ in DEXTROSE 5% 1,000 ML IV (09:30)
[2018-06-24] MEDS: ASPIRIN 81 MG TAB PO (09:43)
[2018-06-24] MEDS: HYDROCODONE/APAP (5/325) TAB PO ×2 (09:44→15:28)
[2018-06-24] MEDS: LINAGLIPTIN 5 MG TABLET PO (09:44)
[2018-06-24] MEDS: LORAZEPAM 2 MG INJ IV (15:45)
[2018-06-24] MEDS: ATORVASTATIN 80 MG TAB PO (21:29)
[2018-06-24] MEDS: ACETAMINOPHEN 325 MG TAB PO (21:29)
[2018-06-24] MEDS: FAMOTIDINE 20 MG TAB GTB (21:29)
[2018-06-24] MEDS: INSULIN GLARGINE [LANTus] (100 UNITS/ML) SYG SC (23:38)
[2018-06-25] MEDS: Insulin NOVOLOG SS MODERATE Algorithm(NPO/TPN/ENTERAL FEEDS) SC ×6 (01:00→21:08)
[2018-06-25 05:51] LABS: ADD MAN DIFF? NO
[2018-06-25 06:01] LABS: BASOPHILS % 0.1 % (0.0-2.0); EOSINOPHILS # 0.4 10^3/ul (0.0-0.5); EOSINOPHILS % 2.9 % (0.0-7.0); HEMATOCRIT 29.1 % (42.0-52.0); HEMOGLOBIN 9.6 g/dl (14.0-18.0); LYMPHOCYTES # 1.4 10^3/ul (0.8-2.9); LYMPHOCYTES % 10.2 % (15.0-51.0); MEAN CORPUSCULAR HEMOGLOBIN 32.5 pg (29.0-33.0); MEAN CORPUSCULAR VOLUME 98.6 fl (82.0-101.0); MEAN PLATELET VOLUME 11.6 fl (7.4-10.4); MONOCYTE # 0.9 10^3/ul (0.3-0.9); MONOCYTES % 6.8 % (0.0-11.0); NEUTROPHIL # 10.6 10^3/ul (1.6-7.5); NEUTROPHILS % 79.5 % (39.0-77.0); PLATELET COUNT 206 10^3/UL (140-415); RED BLOOD COUNT 2.95 10^6/ul (4.70-6.10); RED CELL DISTRIBUTION WIDTH 12.7 % (11.5-14.5)
[2018-06-25 06:01] LABS: WHITE BLOOD COUNT 13.4 10^3/ul (4.8-10.8)
[2018-06-25 06:40] LABS: ANION GAP 13 (8-16); BLOOD UREA NITROGEN 43 mg/dl (7-20); CALCIUM 8.4 mg/dl (8.4-10.2); CARBON DIOXIDE 28 mmol/L (21-31); CHLORIDE 106 mmol/L (97-110); CREATININE 2.16 mg/dl (0.61-1.24); GLUCOSE 170 mg/dl (70-220); POTASSIUM 4.5 mmol/L (3.5-5.1); SODIUM 142 mmol/L (135-144)
[2018-06-25] MEDS: HEPARIN 5,000 UNIT/0.5 ML VIAL SC ×3 (06:42→21:17)
[2018-06-25] MEDS: METOPROLOL 25 MG TAB PO ×3 (06:51→21:15)
[2018-06-25] MEDS: NIFEdipine 10 MG CAP PO ×3 (06:52→21:13)
[2018-06-25] MEDS: ASPIRIN 81 MG TAB PO (08:51)
[2018-06-25] MEDS: LINAGLIPTIN 5 MG TABLET PO (08:51)
[2018-06-25] MEDS: INSULIN GLARGINE [LANTus] (100 UNITS/ML) SYG SC (21:12)
[2018-06-25] MEDS: FAMOTIDINE 20 MG TAB GTB (21:14)
[2018-06-25] MEDS: ATORVASTATIN 80 MG TAB PO (21:14)
[2018-06-25] MEDS: HYDROCODONE/APAP (5/325) TAB PO (21:56)
[2018-06-26] MEDS: Insulin NOVOLOG SS MODERATE Algorithm(NPO/TPN/ENTERAL FEEDS) SC ×6 (01:16→21:41)
[2018-06-26] MEDS: NIFEdipine 10 MG CAP PO ×3 (06:17→21:33)
[2018-06-26] MEDS: METOPROLOL 25 MG TAB PO ×3 (06:18→21:33)
[2018-06-26] MEDS: HEPARIN 5,000 UNIT/0.5 ML VIAL SC ×3 (06:20→21:35)
[2018-06-26] MEDS: LINAGLIPTIN 5 MG TABLET PO (09:14)
[2018-06-26] MEDS: ASPIRIN 81 MG TAB PO (09:14)
[2018-06-26 10:35] LABS: ADD MAN DIFF? NO
[2018-06-26 10:38] LABS: WHITE BLOOD COUNT 10.7 10^3/ul (4.8-10.8)
[2018-06-26 10:38] LABS: BASOPHILS % 0.2 % (0.0-2.0); EOSINOPHILS # 0.5 10^3/ul (0.0-0.5); EOSINOPHILS % 4.5 % (0.0-7.0); HEMATOCRIT 28.1 % (42.0-52.0); LYMPHOCYTES # 1.4 10^3/ul (0.8-2.9); LYMPHOCYTES % 13.1 % (15.0-51.0); MEAN CORPUSCULAR HEMOGLOBIN 31.8 pg (29.0-33.0); MEAN CORPUSCULAR VOLUME 99.3 fl (82.0-101.0); MEAN PLATELET VOLUME 11.4 fl (7.4-10.4); MONOCYTE # 0.8 10^3/ul (0.3-0.9); MONOCYTES % 7.5 % (0.0-11.0); NEUTROPHIL # 7.9 10^3/ul (1.6-7.5); PLATELET COUNT 195 10^3/UL (140-415); RED BLOOD COUNT 2.83 10^6/ul (4.70-6.10); RED CELL DISTRIBUTION WIDTH 12.4 % (11.5-14.5)
[2018-06-26 10:58] LABS: ANION GAP 12 (8-16); BLOOD UREA NITROGEN 45 mg/dl (7-20); CALCIUM 8.5 mg/dl (8.4-10.2); CARBON DIOXIDE 28 mmol/L (21-31); CHLORIDE 107 mmol/L (97-110); CREATININE 2.21 mg/dl (0.61-1.24); GLUCOSE 176 mg/dl (70-220); POTASSIUM 4.5 mmol/L (3.5-5.1); SODIUM 142 mmol/L (135-144)
[2018-06-26] MEDS: SOD CHLORIDE 0.9% 1,000 ML IV (13:12)
[2018-06-26] MEDS: ATORVASTATIN 80 MG TAB PO (20:18)
[2018-06-26] MEDS: FAMOTIDINE 20 MG TAB GTB (20:18)
[2018-06-26] MEDS: HYDROCODONE/APAP (5/325) TAB PO (20:18)
[2018-06-26] MEDS: INSULIN GLARGINE [LANTus] (100 UNITS/ML) SYG SC (20:36)
[2018-06-27] MEDS: Insulin NOVOLOG SS MODERATE Algorithm(NPO/TPN/ENTERAL FEEDS) SC ×6 (01:28→21:10)
[2018-06-27] MEDS: NIFEdipine 10 MG CAP PO ×3 (05:18→22:00)
[2018-06-27] MEDS: METOPROLOL 25 MG TAB PO ×2 (05:19→22:00)
[2018-06-27] MEDS: HEPARIN 5,000 UNIT/0.5 ML VIAL SC ×3 (05:21→22:16)
[2018-06-27 06:00] LABS: ADD MAN DIFF? NO
[2018-06-27 06:06] LABS: WHITE BLOOD COUNT 9.7 10^3/ul (4.8-10.8)
[2018-06-27 06:06] LABS: BASOPHILS % 0.3 % (0.0-2.0); EOSINOPHILS # 0.4 10^3/ul (0.0-0.5); EOSINOPHILS % 4.5 % (0.0-7.0); HEMATOCRIT 28.5 % (42.0-52.0); HEMOGLOBIN 9.4 g/dl (14.0-18.0); LYMPHOCYTES # 1.2 10^3/ul (0.8-2.9); LYMPHOCYTES % 11.9 % (15.0-51.0); MEAN CORPUSCULAR HEMOGLOBIN 32.4 pg (29.0-33.0); MEAN CORPUSCULAR VOLUME 98.3 fl (82.0-101.0); MEAN PLATELET VOLUME 10.9 fl (7.4-10.4); MONOCYTE # 0.9 10^3/ul (0.3-0.9); MONOCYTES % 9.1 % (0.0-11.0); NEUTROPHIL # 7.2 10^3/ul (1.6-7.5); NEUTROPHILS % 73.6 % (39.0-77.0); PLATELET COUNT 221 10^3/UL (140-415); RED CELL DISTRIBUTION WIDTH 12.3 % (11.5-14.5)
[2018-06-27 06:25] LABS: ANION GAP 13 (8-16); BLOOD UREA NITROGEN 40 mg/dl (7-20); CALCIUM 8.6 mg/dl (8.4-10.2); CARBON DIOXIDE 25 mmol/L (21-31); CHLORIDE 110 mmol/L (97-110); CREATININE 1.99 mg/dl (0.61-1.24); GLUCOSE 162 mg/dl (70-220); POTASSIUM 4.4 mmol/L (3.5-5.1); SODIUM 144 mmol/L (135-144)
[2018-06-27] MEDS: LINAGLIPTIN 5 MG TABLET PO (09:42)
[2018-06-27] MEDS: ASPIRIN 81 MG TAB PO (09:42)
[2018-06-27] MEDS: hydrALAzine 20 MG INJ IV (11:58)
[2018-06-27] MEDS: ACETAMINOPHEN 325 MG TAB PO ×2 (11:58→18:07)
[2018-06-27] MEDS: LORAZEPAM 2 MG INJ IV (12:11)
[2018-06-27 18:49] LABS: ADD UMIC YES; UR ASCORBIC ACID NEGATIVE (NEGATIVE); UR BACTERIA FEW /HPF (NONE SEEN); UR BILIRUBIN (Dip) NEGATIVE (NEGATIVE); UR BLOOD (Dip) 2+ mg/dL (NEGATIVE); UR CLARITY CLEAR (CLEAR); UR COLOR YELLOW (YELLOW); UR GLUCOSE (Dip) 1+ mg/dL (NEGATIVE); UR KETONES (Dip) NEGATIVE (NEGATIVE); UR LEUKOCYTE ESTERASE (Dip) NEGATIVE Leu/ul (NEGATIVE); UR NITRITE (Dip) NEGATIVE (NEGATIVE); UR RBC 51 /HPF (0-5); UR SPECIFIC GRAVITY (Dip) 1.014 (1.003-1.030); UR TOTAL PROTEIN (Dip) 2+ mg/dl (NEGATIVE); UR UROBILINOGEN (Dip) NEGATIVE (NEGATIVE); UR WBC 3 /HPF (0-5)
[2018-06-27] MEDS: ATORVASTATIN 80 MG TAB PO (20:49)
[2018-06-27] MEDS: FAMOTIDINE 20 MG TAB GTB (20:51)
[2018-06-27] MEDS: INSULIN GLARGINE [LANTus] (100 UNITS/ML) SYG SC (21:10)
[2018-06-28] MEDS: Insulin NOVOLOG SS MODERATE Algorithm(NPO/TPN/ENTERAL FEEDS) SC ×6 (01:17→22:21)
[2018-06-28] MEDS: HEPARIN 5,000 UNIT/0.5 ML VIAL SC ×3 (05:54→22:23)
[2018-06-28] MEDS: NIFEdipine 10 MG CAP PO ×3 (06:00→22:16)
[2018-06-28 06:17] LABS: WHITE BLOOD COUNT 14.8 10^3/ul (4.8-10.8)
[2018-06-28 06:17] LABS: HEMATOCRIT 27.2 % (42.0-52.0); MEAN CORPUSCULAR HEMOGLOBIN 32.8 pg (29.0-33.0); MEAN CORPUSCULAR HGB CONC 33.1 g/dl (32.0-37.0); MEAN CORPUSCULAR VOLUME 99.3 fl (82.0-101.0); PLATELET COUNT 201 10^3/UL (140-415); POSITIVE DIFF @See below; RED BLOOD COUNT 2.74 10^6/ul (4.70-6.10); RED CELL DISTRIBUTION WIDTH 12.4 % (11.5-14.5)
[2018-06-28] MEDS: METOPROLOL 25 MG TAB PO ×3 (06:20→22:15)
[2018-06-28 06:27] LABS: ADD MAN DIFF? YES
[2018-06-28 06:55] LABS: ANION GAP 12 (8-16); BLOOD UREA NITROGEN 52 mg/dl (7-20); CALCIUM 8.3 mg/dl (8.4-10.2); CARBON DIOXIDE 26 mmol/L (21-31); CHLORIDE 108 mmol/L (97-110); GLUCOSE 165 mg/dl (70-220); POTASSIUM 4.4 mmol/L (3.5-5.1); SODIUM 142 mmol/L (135-144)
[2018-06-28 08:13] LABS: BAND NEUTROPHILS % (M) 7 % (0-4); LYMPHOCYTES #M 0.4 10^3/ul (0.8-2.9); LYMPHOCYTES % (M) 3 % (15-51); METAMYELOCYTES #M 0.1 10^3/ul (0.0-0.0); METAMYELOCYTES %M 1 % (0-0); MONOCYTE #M 0.7 10^3/ul (0.3-0.9); MONOCYTES % (M) 5 % (0-11); PLATELET ESTIMATE NORMAL; SEG NEUT #M 12.6 10^3/ul (1.6-7.5); SEGMENTED NEUTROPHILS (M) % 84 % (39-77); SMUDGE%M 7 % (0-0)
[2018-06-28] MEDS: LINAGLIPTIN 5 MG TABLET PO (08:51)
[2018-06-28] MEDS: ASPIRIN 81 MG TAB PO (08:51)
[2018-06-28] MEDS: HYDROCODONE/APAP (5/325) TAB PO (12:40)
[2018-06-28] MEDS: SOD CHLORIDE 0.9% 1,000 ML IV ×6 (15:30→16:27)
[2018-06-28] MEDS: FAMOTIDINE 20 MG TAB GTB (22:15)
[2018-06-28] MEDS: ATORVASTATIN 80 MG TAB PO (22:15)
[2018-06-28] MEDS: LORAZEPAM 2 MG INJ IV (22:16)
[2018-06-28] MEDS: INSULIN GLARGINE [LANTus] (100 UNITS/ML) SYG SC (22:22)
[2018-06-29] MEDS: Insulin NOVOLOG SS MODERATE Algorithm(NPO/TPN/ENTERAL FEEDS) SC ×6 (01:17→21:54)
[2018-06-29] MEDS: NIFEdipine 10 MG CAP PO ×3 (05:46→21:45)
[2018-06-29] MEDS: METOPROLOL 25 MG TAB PO ×3 (05:46→21:46)
[2018-06-29] MEDS: HEPARIN 5,000 UNIT/0.5 ML VIAL SC ×3 (05:48→21:53)
[2018-06-29 06:09] LABS: ADD MAN DIFF? NO
[2018-06-29 06:17] LABS: WHITE BLOOD COUNT 14.9 10^3/ul (4.8-10.8)
[2018-06-29 06:17] LABS: BASOPHILS % 0.2 % (0.0-2.0); EOSINOPHILS # 0.3 10^3/ul (0.0-0.5); EOSINOPHILS % 2.1 % (0.0-7.0); HEMATOCRIT 24.8 % (42.0-52.0); LYMPHOCYTES # 1.1 10^3/ul (0.8-2.9); LYMPHOCYTES % 7.7 % (15.0-51.0); MEAN CORPUSCULAR HEMOGLOBIN 32.1 pg (29.0-33.0); MEAN CORPUSCULAR HGB CONC 32.3 g/dl (32.0-37.0); MEAN CORPUSCULAR VOLUME 99.6 fl (82.0-101.0); MEAN PLATELET VOLUME 11.3 fl (7.4-10.4); MONOCYTE # 0.7 10^3/ul (0.3-0.9); MONOCYTES % 4.4 % (0.0-11.0); NEUTROPHIL # 12.6 10^3/ul (1.6-7.5); NEUTROPHILS % 84.8 % (39.0-77.0); PLATELET COUNT 201 10^3/UL (140-415); RED BLOOD COUNT 2.49 10^6/ul (4.70-6.10); RED CELL DISTRIBUTION WIDTH 12.5 % (11.5-14.5)
[2018-06-29 06:50] LABS: ANION GAP 12 (8-16); BLOOD UREA NITROGEN 64 mg/dl (7-20); CARBON DIOXIDE 24 mmol/L (21-31); CHLORIDE 111 mmol/L (97-110); CREATININE 3.27 mg/dl (0.61-1.24); GLUCOSE 175 mg/dl (70-220); POTASSIUM 4.5 mmol/L (3.5-5.1); SODIUM 142 mmol/L (135-144)
[2018-06-29] MEDS: LINAGLIPTIN 5 MG TABLET PO (09:16)
[2018-06-29] MEDS: ASPIRIN 81 MG TAB PO (09:16)
[2018-06-29] MEDS: SOD CHLORIDE 0.9% 1,000 ML IV (11:55)
[2018-06-29] MEDS: HYDROCODONE/APAP (5/325) TAB PO (12:21)
[2018-06-29] MEDS: LORAZEPAM 2 MG INJ IV (15:32)
[2018-06-29] MEDS: ATORVASTATIN 80 MG TAB PO (21:45)
[2018-06-29] MEDS: FAMOTIDINE 20 MG TAB GTB (21:46)
[2018-06-29] MEDS: INSULIN GLARGINE [LANTus] (100 UNITS/ML) SYG SC (21:54)
[2018-06-30] MEDS: Insulin NOVOLOG SS MODERATE Algorithm(NPO/TPN/ENTERAL FEEDS) SC ×6 (02:25→22:01)
[2018-06-30] MEDS: SOD CHLORIDE 0.9% 1,000 ML IV (05:25)
[2018-06-30] MEDS: METOPROLOL 25 MG TAB PO ×3 (05:53→21:53)
[2018-06-30] MEDS: HEPARIN 5,000 UNIT/0.5 ML VIAL SC ×3 (05:58→22:01)
[2018-06-30] MEDS: NIFEdipine 10 MG CAP PO ×3 (06:07→21:53)
[2018-06-30] MEDS: LINAGLIPTIN 5 MG TABLET PO (09:22)
[2018-06-30] MEDS: ASPIRIN 81 MG TAB PO (09:22)
[2018-06-30] MEDS: COLLAGENASE 5 GM (UD JAR) TOP (10:30)
[2018-06-30] MEDS: ACETAMINOPHEN 325 MG TAB PO (20:22)
[2018-06-30] MEDS: FAMOTIDINE 20 MG TAB GTB (21:54)
[2018-06-30] MEDS: ATORVASTATIN 80 MG TAB PO (21:54)
[2018-06-30] MEDS: INSULIN GLARGINE [LANTus] (100 UNITS/ML) SYG SC (22:01)
[2018-07-01] MEDS: Insulin NOVOLOG SS MODERATE Algorithm(NPO/TPN/ENTERAL FEEDS) SC ×6 (01:26→21:13)
[2018-07-01] MEDS: ACETAMINOPHEN 325 MG TAB PO ×2 (05:40→11:21)
[2018-07-01] MEDS: NIFEdipine 10 MG CAP PO ×3 (05:40→21:05)
[2018-07-01] MEDS: HEPARIN 5,000 UNIT/0.5 ML VIAL SC ×3 (05:41→21:11)
[2018-07-01] MEDS: METOPROLOL 25 MG TAB PO ×3 (05:41→21:05)
[2018-07-01] MEDS: COLLAGENASE 5 GM (UD JAR) TOP ×2 (09:00)
[2018-07-01] MEDS: ASPIRIN 81 MG TAB PO (10:32)
[2018-07-01] MEDS: LINAGLIPTIN 5 MG TABLET PO (10:32)
[2018-07-01] MEDS: FAMOTIDINE 20 MG TAB GTB (21:04)
[2018-07-01] MEDS: EPOETIN 3000 UNITS/ML (NON ESRD/NON ONCOLOGY) SC (21:04)
[2018-07-01] MEDS: ATORVASTATIN 80 MG TAB PO (21:04)
[2018-07-01] MEDS: INSULIN GLARGINE [LANTus] (100 UNITS/ML) SYG SC (21:12)
[2018-07-02] MEDS: Insulin NOVOLOG SS MODERATE Algorithm(NPO/TPN/ENTERAL FEEDS) SC ×6 (01:00→21:27)
[2018-07-02] MEDS: NIFEdipine 10 MG CAP PO ×3 (06:00→21:21)
[2018-07-02] MEDS: HEPARIN 5,000 UNIT/0.5 ML VIAL SC ×3 (06:00→21:26)
[2018-07-02] MEDS: METOPROLOL 25 MG TAB PO ×3 (06:00→21:22)
[2018-07-02 06:32] LABS: ADD MAN DIFF? NO
[2018-07-02 06:44] LABS: BASOPHILS % 0.2 % (0.0-2.0); EOSINOPHILS # 0.5 10^3/ul (0.0-0.5); EOSINOPHILS % 4.7 % (0.0-7.0); HEMATOCRIT 26.2 % (42.0-52.0); HEMOGLOBIN 8.5 g/dl (14.0-18.0); LYMPHOCYTES # 1.4 10^3/ul (0.8-2.9); LYMPHOCYTES % 14.3 % (15.0-51.0); MEAN CORPUSCULAR HEMOGLOBIN 31.7 pg (29.0-33.0); MEAN CORPUSCULAR HGB CONC 32.4 g/dl (32.0-37.0); MEAN CORPUSCULAR VOLUME 97.8 fl (82.0-101.0); MEAN PLATELET VOLUME 11.2 fl (7.4-10.4); MONOCYTE # 0.6 10^3/ul (0.3-0.9); MONOCYTES % 6.4 % (0.0-11.0); NEUTROPHILS % 72.6 % (39.0-77.0); PLATELET COUNT 243 10^3/UL (140-415); RED BLOOD COUNT 2.68 10^6/ul (4.70-6.10); RED CELL DISTRIBUTION WIDTH 12.4 % (11.5-14.5)
[2018-07-02 06:44] LABS: WHITE BLOOD COUNT 9.6 10^3/ul (4.8-10.8)
[2018-07-02 07:00] LABS: MAGNESIUM 2.6 mg/dl (1.7-2.5)
[2018-07-02 07:00] LABS: ALANINE AMINOTRANSFERASE 47 IU/L (13-69); ALBUMIN 2.9 g/dl (3.3-4.9); ALBUMIN/GLOBULIN RATIO 0.72; ALKALINE PHOSPHATASE 121 IU/L (42-121); ANION GAP 12 (8-16); ASPARTATE AMINO TRANSFERASE 33 IU/L (15-46); BILIRUBIN,INDIRECT 0.1 mg/dl (0-1.1); BILIRUBIN,TOTAL 0.1 mg/dl (0.2-1.3); BLOOD UREA NITROGEN 61 mg/dl (7-20); CALCIUM 8.7 mg/dl (8.4-10.2); CARBON DIOXIDE 28 mmol/L (21-31); CHLORIDE 111 mmol/L (97-110); CREATININE 2.92 mg/dl (0.61-1.24); GLUCOSE 138 mg/dl (70-220); POTASSIUM 4.4 mmol/L (3.5-5.1); SODIUM 147 mmol/L (135-144); TOTAL PROTEIN 6.9 g/dl (6.1-8.1)
[2018-07-02] MEDS: COLLAGENASE 5 GM (UD JAR) TOP ×2 (09:00→09:39)
[2018-07-02] MEDS: ASPIRIN 81 MG TAB PO (09:38)
[2018-07-02] MEDS: LINAGLIPTIN 5 MG TABLET PO (09:38)
[2018-07-02] MEDS: SOD CHLORIDE 0.45% 1,000 ML IV (12:26)
[2018-07-02] MEDS: ACETAMINOPHEN 325 MG TAB PO ×2 (14:37→23:38)
[2018-07-02] MEDS: LORAZEPAM 2 MG INJ IV (15:05)
[2018-07-02] MEDS: ATORVASTATIN 80 MG TAB PO (21:00)
[2018-07-02] MEDS: FAMOTIDINE 20 MG TAB GTB (21:21)
[2018-07-02] MEDS: INSULIN GLARGINE [LANTus] (100 UNITS/ML) SYG SC (21:26)
[2018-07-03] MEDS: Insulin NOVOLOG SS MODERATE Algorithm(NPO/TPN/ENTERAL FEEDS) SC ×6 (00:38→21:08)
[2018-07-03] MEDS: LORAZEPAM 2 MG INJ IV ×2 (00:57→22:20)
[2018-07-03] MEDS: SOD CHLORIDE 0.45% 1,000 ML IV (00:59)
[2018-07-03] MEDS: NIFEdipine 10 MG CAP PO ×3 (05:51→22:21)
[2018-07-03] MEDS: METOPROLOL 25 MG TAB PO ×3 (05:52→22:21)
[2018-07-03] MEDS: HEPARIN 5,000 UNIT/0.5 ML VIAL SC (05:55)
[2018-07-03 06:24] LABS: ADD MAN DIFF? NO
[2018-07-03 06:29] LABS: BASOPHILS % 0.3 % (0.0-2.0); EOSINOPHILS # 0.5 10^3/ul (0.0-0.5); EOSINOPHILS % 4.3 % (0.0-7.0); HEMATOCRIT 25.1 % (42.0-52.0); HEMOGLOBIN 7.8 g/dl (14.0-18.0); LYMPHOCYTES # 1.3 10^3/ul (0.8-2.9); MEAN CORPUSCULAR HEMOGLOBIN 30.8 pg (29.0-33.0); MEAN CORPUSCULAR HGB CONC 31.1 g/dl (32.0-37.0); MEAN CORPUSCULAR VOLUME 99.2 fl (82.0-101.0); MEAN PLATELET VOLUME 12.6 fl (7.4-10.4); MONOCYTE # 0.7 10^3/ul (0.3-0.9); MONOCYTES % 6.5 % (0.0-11.0); NEUTROPHILS % 75.5 % (39.0-77.0); PLATELET COUNT 148 10^3/UL (140-415); RED BLOOD COUNT 2.53 10^6/ul (4.70-6.10); RED CELL DISTRIBUTION WIDTH 12.4 % (11.5-14.5)
[2018-07-03 06:29] LABS: WHITE BLOOD COUNT 10.5 10^3/ul (4.8-10.8)
[2018-07-03 07:16] LABS: ANION GAP 9 (8-16); BLOOD UREA NITROGEN 59 mg/dl (7-20); CALCIUM 8.3 mg/dl (8.4-10.2); CARBON DIOXIDE 28 mmol/L (21-31); CHLORIDE 109 mmol/L (97-110); CREATININE 2.73 mg/dl (0.61-1.24); GLUCOSE 174 mg/dl (70-220); MAGNESIUM 2.6 mg/dl (1.7-2.5); PHOSPHORUS 4.1 mg/dl (2.5-4.9); POTASSIUM 4.1 mmol/L (3.5-5.1); SODIUM 142 mmol/L (135-144)
[2018-07-03] MEDS: COLLAGENASE 5 GM (UD JAR) TOP ×2 (09:00→09:32)
[2018-07-03] MEDS: ASPIRIN 81 MG TAB PO (09:32)
[2018-07-03] MEDS: ACETAMINOPHEN 325 MG TAB PO ×3 (09:32→23:01)
[2018-07-03] MEDS: LINAGLIPTIN 5 MG TABLET PO (09:32)
[2018-07-03] MEDS: EPOETIN 3000 UNITS/ML (NON ESRD/NON ONCOLOGY) SC (16:44)
[2018-07-03] MEDS: INSULIN GLARGINE [LANTus] (100 UNITS/ML) SYG SC (21:06)
[2018-07-03] MEDS: FAMOTIDINE 20 MG TAB GTB (21:07)
[2018-07-03] MEDS: ATORVASTATIN 80 MG TAB PO (21:07)
[2018-07-04] MEDS: HALOPERIDOL 5 MG INJ IM (00:22)
[2018-07-04] MEDS: Insulin NOVOLOG SS MODERATE Algorithm(NPO/TPN/ENTERAL FEEDS) SC ×6 (00:25→21:13)
[2018-07-04] MEDS: LORAZEPAM 2 MG INJ IM (01:13)
[2018-07-04] MEDS: METOPROLOL 25 MG TAB PO ×3 (06:01→21:14)
[2018-07-04] MEDS: NIFEdipine 10 MG CAP PO ×3 (06:01→21:15)
[2018-07-04 06:05] LABS: ADD MAN DIFF? NO
[2018-07-04 06:15] LABS: WHITE BLOOD COUNT 7.9 10^3/ul (4.8-10.8)
[2018-07-04 06:15] LABS: BASOPHILS % 0.3 % (0.0-2.0); EOSINOPHILS # 0.5 10^3/ul (0.0-0.5); EOSINOPHILS % 6.4 % (0.0-7.0); HEMATOCRIT 27.1 % (42.0-52.0); HEMOGLOBIN 8.9 g/dl (14.0-18.0); LYMPHOCYTES # 1.1 10^3/ul (0.8-2.9); LYMPHOCYTES % 14.3 % (15.0-51.0); MEAN CORPUSCULAR HEMOGLOBIN 31.9 pg (29.0-33.0); MEAN CORPUSCULAR HGB CONC 32.8 g/dl (32.0-37.0); MEAN CORPUSCULAR VOLUME 97.1 fl (82.0-101.0); MEAN PLATELET VOLUME 11.9 fl (7.4-10.4); MONOCYTE # 0.6 10^3/ul (0.3-0.9); MONOCYTES % 7.1 % (0.0-11.0); NEUTROPHIL # 5.5 10^3/ul (1.6-7.5); NEUTROPHILS % 69.8 % (39.0-77.0); PLATELET COUNT 198 10^3/UL (140-415); RED BLOOD COUNT 2.79 10^6/ul (4.70-6.10)
[2018-07-04] MEDS: LINAGLIPTIN 5 MG TABLET PO (09:26)
[2018-07-04] MEDS: ASPIRIN 81 MG TAB PO (09:26)
[2018-07-04] MEDS: COLLAGENASE 5 GM (UD JAR) TOP ×2 (09:26)
[2018-07-04] MEDS: FLUOXETINE 20 MG CAP PO (11:38)
[2018-07-04] MEDS: LORAZEPAM 2 MG INJ IV (16:20)
[2018-07-04] MEDS: SOD CHLORIDE 0.9% 1,000 ML IV (16:20)
[2018-07-04] MEDS ORDERED: MIRTAZAPINE 15 MG TAB GTB (21:00)
[2018-07-04] MEDS: INSULIN GLARGINE [LANTus] (100 UNITS/ML) SYG SC (21:09)
[2018-07-04] MEDS: FAMOTIDINE 20 MG TAB GTB (21:10)
[2018-07-04] MEDS: ATORVASTATIN 80 MG TAB PO (21:10)
[2018-07-05] MEDS: Insulin NOVOLOG SS MODERATE Algorithm(NPO/TPN/ENTERAL FEEDS) SC ×6 (01:59→21:36)
[2018-07-05] MEDS: METOPROLOL 25 MG TAB PO ×3 (06:01→21:40)
[2018-07-05] MEDS: NIFEdipine 10 MG CAP PO ×3 (06:02→21:40)
[2018-07-05 06:16] LABS: ADD MAN DIFF? NO
[2018-07-05 06:24] LABS: BASOPHILS % 0.3 % (0.0-2.0); EOSINOPHILS # 0.4 10^3/ul (0.0-0.5); EOSINOPHILS % 4.2 % (0.0-7.0); HEMATOCRIT 27.9 % (42.0-52.0); HEMOGLOBIN 9.1 g/dl (14.0-18.0); LYMPHOCYTES # 1.6 10^3/ul (0.8-2.9); LYMPHOCYTES % 18.4 % (15.0-51.0); MEAN CORPUSCULAR HEMOGLOBIN 31.8 pg (29.0-33.0); MEAN CORPUSCULAR HGB CONC 32.6 g/dl (32.0-37.0); MEAN CORPUSCULAR VOLUME 97.6 fl (82.0-101.0); MEAN PLATELET VOLUME 12.1 fl (7.4-10.4); MONOCYTE # 0.6 10^3/ul (0.3-0.9); MONOCYTES % 6.5 % (0.0-11.0); NEUTROPHILS % 68.9 % (39.0-77.0); PLATELET COUNT 182 10^3/UL (140-415); RED BLOOD COUNT 2.86 10^6/ul (4.70-6.10); RED CELL DISTRIBUTION WIDTH 12.1 % (11.5-14.5)
[2018-07-05 06:24] LABS: WHITE BLOOD COUNT 8.7 10^3/ul (4.8-10.8)
[2018-07-05 06:48] LABS: ANION GAP 13 (8-16); BLOOD UREA NITROGEN 44 mg/dl (7-20); CALCIUM 8.9 mg/dl (8.4-10.2); CARBON DIOXIDE 28 mmol/L (21-31); CHLORIDE 108 mmol/L (97-110); CREATININE 2.07 mg/dl (0.61-1.24); GLUCOSE 217 mg/dl (70-220); POTASSIUM 3.9 mmol/L (3.5-5.1); SODIUM 145 mmol/L (135-144)
[2018-07-05] MEDS: ASPIRIN 81 MG TAB PO (08:42)
[2018-07-05] MEDS: FLUOXETINE 20 MG CAP PO (08:43)
[2018-07-05] MEDS: LINAGLIPTIN 5 MG TABLET PO (08:43)
[2018-07-05] MEDS: COLLAGENASE 5 GM (UD JAR) TOP ×2 (08:43)
[2018-07-05] MEDS: HYDROCODONE/APAP (5/325) TAB PO (17:00)
[2018-07-05] MEDS: LORAZEPAM 2 MG INJ IV (21:25)
[2018-07-05] MEDS: INSULIN GLARGINE [LANTus] (100 UNITS/ML) SYG SC (21:36)
[2018-07-05] MEDS: FAMOTIDINE 20 MG TAB GTB (21:39)
[2018-07-05] MEDS: MINOXIDIL 2.5 MG TAB NGT (21:39)
[2018-07-05] MEDS: ATORVASTATIN 80 MG TAB PO (21:39)
[2018-07-06] MEDS: Insulin NOVOLOG SS MODERATE Algorithm(NPO/TPN/ENTERAL FEEDS) SC ×6 (01:22→21:26)
[2018-07-06] MEDS: SOD CHLORIDE 0.9% 1,000 ML IV ×2 (02:24→18:22)
[2018-07-06] MEDS: LORAZEPAM 2 MG INJ IV ×3 (05:05→20:17)
[2018-07-06] MEDS: METOPROLOL 25 MG TAB PO ×3 (05:28→21:39)
[2018-07-06] MEDS: NIFEdipine 10 MG CAP PO ×3 (05:29→21:39)
[2018-07-06] MEDS: COLLAGENASE 5 GM (UD JAR) TOP ×2 (09:00→09:20)
[2018-07-06] MEDS: FLUOXETINE 20 MG CAP PO (09:20)
[2018-07-06] MEDS: LINAGLIPTIN 5 MG TABLET PO (09:21)
[2018-07-06] MEDS: ASPIRIN 81 MG TAB PO (09:21)
[2018-07-06] MEDS: MINOXIDIL 2.5 MG TAB NGT ×2 (09:22→21:38)
[2018-07-06] MEDS: HYDROCODONE/APAP (5/325) TAB PO ×2 (14:55→21:37)
[2018-07-06] MEDS: EPOETIN 3000 UNITS/ML (NON ESRD/NON ONCOLOGY) SC (19:07)
[2018-07-06] MEDS: INSULIN GLARGINE [LANTus] (100 UNITS/ML) SYG SC (21:26)
[2018-07-06] MEDS: ATORVASTATIN 80 MG TAB PO (21:39)
[2018-07-06] MEDS: FAMOTIDINE 20 MG TAB GTB (21:39)
[2018-07-07] MEDS: Insulin NOVOLOG SS MODERATE Algorithm(NPO/TPN/ENTERAL FEEDS) SC ×6 (02:26→20:42)
[2018-07-07] MEDS: LORAZEPAM 2 MG INJ IV ×3 (02:40→20:10)
[2018-07-07] MEDS: HYDROCODONE/APAP (5/325) TAB PO ×2 (05:12→15:30)
[2018-07-07] MEDS: NIFEdipine 10 MG CAP PO ×3 (05:25→21:30)
[2018-07-07] MEDS: METOPROLOL 25 MG TAB PO ×3 (05:25→20:22)
[2018-07-07 05:39] LABS: ADD MAN DIFF? NO
[2018-07-07 05:40] LABS: BASOPHILS % 0.3 % (0.0-2.0); EOSINOPHILS # 0.5 10^3/ul (0.0-0.5); HEMATOCRIT 26.5 % (42.0-52.0); HEMOGLOBIN 8.6 g/dl (14.0-18.0); LYMPHOCYTES # 1.8 10^3/ul (0.8-2.9); LYMPHOCYTES % 18.8 % (15.0-51.0); MEAN CORPUSCULAR HGB CONC 32.5 g/dl (32.0-37.0); MEAN CORPUSCULAR VOLUME 98.5 fl (82.0-101.0); MEAN PLATELET VOLUME 9.9 fl (7.4-10.4); MONOCYTE # 0.5 10^3/ul (0.3-0.9); MONOCYTES % 5.6 % (0.0-11.0); NEUTROPHIL # 6.7 10^3/ul (1.6-7.5); NEUTROPHILS % 69.3 % (39.0-77.0); PLATELET COUNT 350 10^3/UL (140-415); RED BLOOD COUNT 2.69 10^6/ul (4.70-6.10); RED CELL DISTRIBUTION WIDTH 12.2 % (11.5-14.5)
[2018-07-07 05:40] LABS: WHITE BLOOD COUNT 9.7 10^3/ul (4.8-10.8)
[2018-07-07] MEDS: SOD CHLORIDE 0.9% 1,000 ML IV ×3 (06:02→20:24)
[2018-07-07 06:16] LABS: ANION GAP 10 (8-16); BLOOD UREA NITROGEN 43 mg/dl (7-20); CALCIUM 8.5 mg/dl (8.4-10.2); CARBON DIOXIDE 30 mmol/L (21-31); CHLORIDE 108 mmol/L (97-110); CREATININE 2.02 mg/dl (0.61-1.24); GLUCOSE 188 mg/dl (70-220); POTASSIUM 4.1 mmol/L (3.5-5.1); SODIUM 144 mmol/L (135-144)
[2018-07-07 06:17] LABS: MAGNESIUM 2.2 mg/dl (1.7-2.5)
[2018-07-07 06:17] LABS: PHOSPHORUS 4.6 mg/dl (2.5-4.9)
[2018-07-07] MEDS: LINAGLIPTIN 5 MG TABLET PO (08:44)
[2018-07-07] MEDS: MINOXIDIL 2.5 MG TAB NGT ×2 (08:44→20:23)
[2018-07-07] MEDS: ASPIRIN 81 MG TAB PO (08:44)
[2018-07-07] MEDS: FLUOXETINE 20 MG CAP PO (08:45)
[2018-07-07] MEDS: COLLAGENASE 5 GM (UD JAR) TOP ×2 (09:00→10:00)
[2018-07-07 10:57] LABS: AADO2 Arterial 117.6 mmHg (7.0-24.0); Allen Test ACCEPTAB; Arterial Base Excess 3.4 mmol/L (-3.0-3); Arterial Blood Gas Oxygen Sat 95.2 mmHG (95.0-98.0); Arterial COHb 0.3 % (0.0-3.0); Arterial Fraction of Oxyhgb 94.8 % (93.0-99.0); Arterial HCO3 28.4 mmol/L (22.0-26.0); Arterial MetHb 0.1 % (0.0-1.5); Arterial Total Hemglobin 9.6 g/dl (12.0-18.0); Arterial pCO2 45.1 mmhg (35-45); MODE TRACH COLLAR; Site Left Radial
[2018-07-07] MEDS: LEVOFLOXACIN 500 MG TAB PO (14:17)
[2018-07-07] MEDS: ATORVASTATIN 80 MG TAB PO (20:22)
[2018-07-07] MEDS: FAMOTIDINE 20 MG TAB GTB (20:22)
[2018-07-07] MEDS: INSULIN GLARGINE [LANTus] (100 UNITS/ML) SYG SC (20:40)
[2018-07-08] MEDS ORDERED: LEVOFLOXACIN 250 MG TAB PO (06:00)
== END 2018-07-07 21:59 | DRG 4 ==
LOC: ICU 06-07 18:04 → 6WM 06-24 13:43 → E/R 08:06 → MS4 10:12
PROC: 0B110F4 Bypass Trachea to Cutaneous with Tracheostomy Device, Open Approach (ICD-10-PCS; principal; 2018-06-22 12:00)
PROC: 5A1955Z Respiratory Ventilation, Greater than 96 Consecutive Hours (ICD-10-PCS; 2018-06-22 12:57)
PROC: 009U3ZX Drainage of Spinal Canal, Percutaneous Approach, Diagnostic (ICD-10-PCS; 2018-06-22 12:57)
PROC: 0BH18EZ Insertion of Endotracheal Airway into Trachea, Via Natural or Artificial Opening Endoscopic (ICD-10-PCS; 2018-06-22 12:57)
PROC: 0DH63UZ Insertion of Feeding Device into Stomach, Percutaneous Approach (ICD-10-PCS; 2018-06-22 12:57)
PROC: 0BH17EZ Insertion of Endotracheal Airway into Trachea, Via Natural or Artificial Opening (ICD-10-PCS; 2018-06-22 12:57)
PROC: 0BH18EZ Insertion of Endotracheal Airway into Trachea, Via Natural or Artificial Opening Endoscopic (ICD-10-PCS; 2018-06-22 12:57)
PROC: 5A1955Z Respiratory Ventilation, Greater than 96 Consecutive Hours (ICD-10-PCS; 2018-06-22 12:57)
PROC: 5A1935Z Respiratory Ventilation, Less than 24 Consecutive Hours (ICD-10-PCS; 2018-06-22 12:57)
DX: A92.31 West Nile virus infection with encephalitis (principal); J96.00 Acute respiratory failure, unspecified whether with hypoxia or hypercapnia; B00.4 Herpesviral encephalitis; J96.01 Acute respiratory failure with hypoxia; A92.32 West Nile virus infection with other neurologic manifestation; J96.02 Acute respiratory failure with hypercapnia; I63.9 Cerebral infarction, unspecified; G93.49 Other encephalopathy; N17.0 Acute kidney failure with tubular necrosis; I16.1 Hypertensive emergency; G12.22 Progressive bulbar palsy; E87.2 Acidosis; F10.231 Alcohol dependence with withdrawal delirium; E78.5 Hyperlipidemia, unspecified; E66.9 Obesity, unspecified; E86.0 Dehydration; E11.22 Type 2 diabetes mellitus with diabetic chronic kidney disease; I12.9 Hypertensive chronic kidney disease with stage 1 through stage 4 chronic kidney disease, or unspecified chronic kidney disease; N18.9 Chronic kidney disease, unspecified; D17.71 Benign lipomatous neoplasm of kidney; Z68.33 Body mass index [BMI] 33.0-33.9, adult
CPT/HCPCS: 31500; 36415; 36600; 70450; 70545; 70548; 70551; 70553; 71045; 76775; 80048; 80053; 80061; 80202; 80307; 81001; 81003; 82140; 82550; 82553; 82570; 82803; 82945; 82962; 83036; 83605; 83615; 83735; 84100; 84157; 84300; 84439; 84443; 84484; 84560; 85025; 85610; 85651; 85730; 86140; 86592; 86692; 86703; 86788; 86789; 87040; 87070; 87081; 87086; 87210; 89051; 89190; 93005; 93306; 93312; 93320; 93325; 93880; 94002; 94003; 94640; 94770; 95819; 96374; 96375; 99285-25